=== PATIENT | female | born 1990 | race Caucasian/White ===

== ENCOUNTER 2016-11-26 09:51 | Day surgery (SDC) | payer MEDICAID ==
[~2016-11-26 09:51] MED LIST: Lactated Ringers 1,000 ML IV SCH; Lidocaine 2% 5 ML SDV ONE; Midazolam 1 MG/ML 2 ML SDV ONE; Ondansetron 4 MG/2 ML SDV ONE; Propofol 200 MG/20 ML SDV ONE; Sodium Chloride 0.9% 10 ML Syringe FLUSH PRN; Sodium Chloride 0.9% 2.5 ML Syringe FLUSH PRN; fentaNYL 100 MCG/2 ML SDV ONE
--- NOTE | 2016-11-26 10:24 | PCM.PREANE ---
Preanesthetic Assessment - Anesthesia/Transfusion/Family Hx Anesthesia History: Prior Anesthesia Without Reaction Family History of Anesthesia Reaction: No Transfusion History: No Prior Transfusion(s) Intubation History: Unknown - Review of Systems General: No Symptoms Cardiovascular: No Symptoms Gastrointestinal: No Symptoms Neurological: No Symptoms Other: Reports: None - Physical Assessment O2 Sat by Pulse Oximetry: 96 Respiratory Rate: 16 Vital Signs: Last Vital Signs Temp 36.1 C 11/26/16 10:15 Pulse 77 11/26/16 10:15 Resp 16 11/26/16 10:15 BP 135/61 11/26/16 10:15 Pulse Ox 96 11/26/16 10:15 Height: 1.47 m Weight: 66.678 kg ASA Class: 2 Mental Status: Alert & Oriented x3 Airway Class: Mallampati = 2 Dentition: Reports: Normal Dentition Thyro-Mental Finger Breadths: 3 Mouth Opening Finger Breadths: 3 ROM/Head Extension: Full Lungs: Clear to Auscultation, Normal Respiratory Effort Cardiovascular: Regular Rate, Regular Rhythm - Lab Values: Laboratory Last Values WBC 5.93 K/uL (4.0-11.0) 11/26/16 10:09 RBC 4.70 M/uL (4.30-5.90) 11/26/16 10:09 Hgb 11.9 g/dL (12.0-16.0) L 11/26/16 10:09 Hct 37.3 % (36.0-46.0) 11/26/16 10:09 MCV 79.4 fL (80.0-98.0) L 11/26/16 10:09 MCH 25.3 pg (27.0-32.0) L 11/26/16 10:09 MCHC 31.9 g/dL (31.0-37.0) 11/26/16 10:09 RDW Std Deviation 38.9 fl (28.0-62.0) 11/26/16 10:09 RDW Coeff of Manny 14 % (11.0-15.0) 11/26/16 10:09 Plt Count 278 K/uL (150-400) 11/26/16 10:09 MPV 9.70 fL (7.40-12.00) 11/26/16 10:09 Nucleated RBC % 0.0 /100WBC 11/26/16 10:09 Nucleated RBCs # 0 K/uL 11/26/16 10:09 - Allergies Allergies/Adverse Reactions: Allergies Allergy/AdvReac Type Severity Reaction Status Date / Time iodine Allergy Rash Verified 11/20/16 10:13 povidone-iodine Allergy Rash Verified 11/20/16 10:13 [From Betadine] soap [From Betadine] Allergy Rash Verified 11/20/16 10:13 - Blood Blood Available: No - Anesthesia Plan Pre-Op Medication Ordered: None - Acknowledgements Anesthesia Type Planned: General Anesthesia Pt an Appropriate Candidate for the Planned Anesthesia: Yes Alternatives and Risks of Anesthesia Discussed w Pt/Guardian: Yes Pt/Guardian Understands and Agrees with Anesthesia Plan: Yes PreAnesthesia Questionnaire HEENT History: Reports: None Other HEENT History: wears glasses Cardiovascular History: Reports: Other (See Below) Other Cardiovascular History: ? PAT, takes metoprolol, gets SOB during tachycardia episodes Respiratory History: Reports: None Gastrointestinal History: Reports: Celiac Disease, GERD Genitourinary History: Reports: None MEDIA AID History: Reports: Musculoskeletal History: Reports: Fracture, Other (See Below) (h/o costochondritis) Other Musculoskeletal History: hx of fx skull, age 5 Neurological History: Reports: Head Trauma, Migraines Endocrine/Metabolic History: Reports: Obesity/BMI 30+ Hematologic History: Reports: None Other Immunologic History: celiac disease Oncologic (Cancer) History: Reports: None - Infectious Disease History Infectious Disease History: Reports: Chicken Pox - Past Surgical History Head Surgeries/Procedures: Reports: Craniotomy (for lakhwinder fracture at age 5) HEENT Surgical History: Reports: None Cardiovascular Surgical History: Reports: None GI Surgical History: Reports: Cholecystectomy, EGD (x2) Female Surgical History: Reports: Section Neurological Surgical History: Reports: None Musculoskeletal Surgical History: Reports: None - SUBSTANCE USE Smoking Status *Q: Former Smoker Tobacco Use Within Last Twelve Months: No Second Hand Smoke Exposure: No Days Per Week of Alcohol Use: 0 Recreational Drug Use History: No - HOME MEDS Home Medications: Home Meds Multivitamin [Multivitamins] 1 each PO DAILY 09/07/13 [History] Metoprolol Succinate 50 mg PO DAILY 11/20/16 [History] - CURRENT (IN HOUSE) MEDS Current Meds: Current Medications Lactated Ringer's (Ringers, Lactated) 1,000 mls @ 100 mls/hr IV ASDIRECTED PIPER Last Admin: 11/26/16 10:14 Dose: 100 mls/hr Sodium Chloride (Saline Flush) 10 ml FLUSH ASDIRECTED PRN PRN Reason: Keep Vein Open Sodium Chloride (Saline Flush) 2.5 ml FLUSH ASDIRECTED PRN PRN Reason: Keep Vein Open Discontinued Medications Fentanyl (Sublimaze) Confirm Administered Dose 200 mcg .ROUTE .STK-MED ONE Stop: 11/26/16 08:01 Lidocaine (Xylocaine-Mpf 2%) Confirm Administered Dose 5 ml .ROUTE .STK-MED ONE Stop: 11/26/16 08:01 Midazolam HCl (Versed 1 Mg/Ml) Confirm Administered Dose 2 mg .ROUTE .STK-MED ONE Stop: 11/26/16 08:01 Ondansetron HCl (Zofran) Confirm Administered Dose 4 mg .ROUTE .STK-MED ONE Stop: 11/26/16 08:01 Propofol (Diprivan 20 Ml) Confirm Administered Dose 200 mg .ROUTE .STK-MED ONE Stop: 11/26/16 08:01
[2016-11-26] MEDS ORDERED: ePHEDrine 50 MG/ML SDV ONE (11:16)
--- NOTE | 2016-11-26 11:31 | PCM.OPNOTE ---
- General Post-Op/Procedure Note Date of Surgery/Procedure: 11/26/16 Operative Procedure(s): Operative hysteroscopy/polypectomies/curretage of endometrium Findings: Polypoid endoemtrial tissue across entire cavity Pre Op Diagnosis: Menometrorrhagia Post-Op Diagnosis: Same Anesthesia Technique: General LMA Primary Surgeon: Alana Wisdom Pathology: endometrial curretings Fluid Replacement, Intraop: 1,000 (Fluid deficit 730 mL NS) EBL in mLs: 25 Complications: None known Condition: Good Free Text/Narrative:: Dictation [id number]
[2016-11-26] MEDS: fentaNYL 100 MCG/2 ML SDV IVPUSH PRN ×2 (11:55→12:00)
--- NOTE | 2016-11-26 12:08 | PCM.POSTAN ---
POST ANESTHESIA ASSESSMENT - MENTAL STATUS Mental Status: Alert, Oriented - RESPIRATORY Respiratory Status: Respiratory Rate WNL, Airway Patent, O2 Saturation Stable - CARDIOVASCULAR CV Status: Pulse Rate WNL, Blood Pressure Stable - GASTROINTESTINAL GI Status: No Symptoms - PAIN Pain Score: 5 - POST OP HYDRATION Hydration Status: Adequate & Stable - OBSERVATIONS Free Text/Narrative:: no anesthesia problems
--- NOTE | 2016-11-26 12:48 | OR ---
SURGEON: Alana Wisdom M.D. DATE OF PROCEDURE: 11/26/2016 PREOPERATIVE DIAGNOSIS: Menometrorrhagia. POSTOPERATIVE DIAGNOSIS: Menometrorrhagia. PROCEDURE: Operative hysteroscopy with polypectomy, curettage of endometrium. ANESTHESIA: General LMA. ESTIMATED BLOOD LOSS: 25 mL. FLUIDS: 1000 mL of crystalloid. Fluid deficit 730 mL of normal saline. COMPLICATIONS: None. DISPOSITION: The patient to PACU, stable. PROCEDURE IN DETAIL: Tierra is a 26-year-old female, who has had ongoing difficulties with menometrorrhagia that was back refractory to usual hormone therapy treatment and finally resolved with IM Delestrogen Depo-Provera injection. Sonohysterogram revealed 3 possible polypoid lesions. Therefore, she presents today for further evaluation with hysteroscopy and polypectomy. Risks of the procedure have been discussed with proper consent obtained. The patient was taken to the operating room, where she underwent general LMA, was placed in modified dorsal lithotomy position. She was prepped and draped in the usual sterile fashion. The bladder was drained. Time-out was performed. Speculum was then introduced in the vagina. Posterior lip of the cervix was grasped with an Allis clamp. The cervix was gently dilated to 5 mm. MyoSure hysteroscope was gently introduced. Endometrial cavity was able to be identified. Both ostia identified. The endometrial cavity was filled with polypoid lesions, but with that most consistent with either hyperplasia or diffuse dysfunctional endometrium. Therefore, using the MyoSure the endometrium was shaved and flushed to the level of the base of the endometrium to clear out the majority of the polypoid lesions. Photographs were taken. The MyoSure device was now removed. Gentle curettage of endometrium was performed. All the specimens will be sent to Pathology for analysis. Cervix was inspected and found to be hemostatic. The sponge and instrument count were correct x2. Hemostasis appeared evident. The patient tolerated the procedure well. She will go to PACU in stable condition. Specimens to pathology. FELICIA / ALONA /[id number]
[2016-11-26 14:56] VITALS: BP 121/63
== END 2016-11-26 13:10 | disposition home or self-care (01) ==
LOC: MW.SDS 09:51
PROVIDERS: ATTEND Obstetrics & Gynecology
DX: N84.0 Polyp of corpus uteri (principal); I47.1 Supraventricular tachycardia; Z87.891 Personal history of nicotine dependence; Z90.49 Acquired absence of other specified parts of digestive tract; Z98.890 Other specified postprocedural states; Z79.899 Other long term (current) drug therapy; Z91.048 Other nonmedicinal substance allergy status
CPT/HCPCS: 36415; 58558; 84703; 85027; J2250; J2405; J3010; J7120; 00952; 88305; J2704

== ENCOUNTER 2017-10-13 13:19 | Emergency (ER) | payer MEDICAID ==
--- NOTE | 2017-10-13 13:40 | EDM.PDOC ---
ED HPI GENERAL MEDICAL PROBLEM - General Chief Complaint: ENT Problem Stated Complaint: SORE THROAT Time Seen by Provider: 10/13/17 13:21 Source of Information: Reports: Patient History Limitations: Reports: No Limitations - History of Present Illness INITIAL COMMENTS - FREE TEXT/NARRATIVE: HISTORY AND PHYSICAL: History of present illness: Patient is a 27-year-old female who presents to the emergency room today with complaints of sore throat and left ear pain. She states approximately one week ago she did start to have throat discomfort and recently was placed on a Z-Jeffrey. She does have one dose left but feels that her throat is becoming more painful and is now having discomfort when eating or swallowing. She denies any fever, chills, chest pain, shortness of breath. Denies any abdominal pain, nausea, vomiting, diarrhea or constipation. Although she has pain with eating she has been able to drink appropriately. No change in bowel or urinary pattern. Review of systems: As per history of present illness and below otherwise all systems reviewed and negative. Past medical history: As per history of present illness and as reviewed below otherwise noncontributory. Surgical history: As per history of present illness and as reviewed below otherwise noncontributory. Social history: No reported history of drug or alcohol abuse. Family history: As per history of present illness and as reviewed below otherwise noncontributory. Physical exam: General: Well-developed and well-nourished 27-year-old female. Alert and oriented. Nontoxic appearing and in no acute distress. HEENT: Atraumatic, normocephalic, pupils equal and reactive bilaterally, negative for conjunctival pallor or scleral icterus, mucous membranes moist, mild erythema noted to the posterior oropharynx with mild exudate bilaterally, no pilar shifting, neck supple, nontender, trachea midline. TMs normal bilaterally. No drooling or trismus noted. No meningeal signs Lungs: Clear to auscultation, breath sounds equal bilaterally, chest nontender. Heart: S1S2, regular rate and rhythm without overt murmur Abdomen: Soft, nondistended, nontender. Negative for masses or hepatosplenomegaly. Negative for costovertebral tenderness. Pelvis: Stable nontender. Genitourinary: Deferred. Rectal: Deferred. Skin: Intact, warm, dry. No lesions or rashes noted. Extremities: Atraumatic, negative for cords or calf pain. Neurovascular unremarkable. Neuro: Awake, alert, oriented. Cranial nerves II through XII unremarkable. Cerebellum unremarkable. Motor and sensory unremarkable throughout. Exam nonfocal. Notes: Will treat the patient with Augmentin and Tylenol with Codeine. Supportive care measures were reviewed and discussed. She voices understanding and is agreeable to plan of care. Diagnostics: [] Therapeutics: [] Impression: Pharyngitis Plan: 1. Please take the medications as prescribed. Please get a new toothbrush once her antibiotic is completed 2. Follow-up with your primary care provider in the next 1-2 days. Return to the ED as needed and as discussed. Definitive disposition and diagnosis as appropriate pending reevaluation and review of above. - Related Data Allergies Allergy/AdvReac Type Severity Reaction Status Date / Time iodine Allergy Rash Verified 10/13/17 13:35 povidone-iodine Allergy Rash Verified 10/13/17 13:35 [From Betadine] soap [From Betadine] Allergy Rash Verified 10/13/17 13:35 Home Meds: Home Meds Amoxicillin/Potassium Clav [Augmentin 875-125 Tablet] 1 each PO BID 10 Days #20 tablet 10/13/17 [Rx] Azithromycin [Zithromax] 1 gm PO ASDIRECTED 10/13/17 [History] Past Medical History HEENT History: Reports: None Other HEENT History: wears glasses Cardiovascular History: Reports: Other (See Below) Other Cardiovascular History: ? PAT, takes metoprolol, gets SOB during tachycardia episodes Respiratory History: Reports: None Gastrointestinal History: Reports: Celiac Disease, GERD Genitourinary History: Reports: None LUMP ROLLER History: Reports: Musculoskeletal History: Reports: Fracture, Other (See Below) (h/o costochondritis) Other Musculoskeletal History: hx of fx skull, age 5 Neurological History: Reports: Head Trauma, Migraines Endocrine/Metabolic History: Reports: Obesity/BMI 30+ Hematologic History: Reports: None Other Immunologic History: celiac disease Oncologic (Cancer) History: Reports: None - Infectious Disease History Infectious Disease History: Reports: Chicken Pox - Past Surgical History Head Surgeries/Procedures: Reports: Craniotomy (for lakhwinder fracture at age 5) HEENT Surgical History: Reports: None Cardiovascular Surgical History: Reports: None GI Surgical History: Reports: Cholecystectomy, EGD (x2) Female Surgical History: Reports: Section Neurological Surgical History: Reports: None Musculoskeletal Surgical History: Reports: None Social & Family History - Family History Family Medical History: Noncontributory - Caffeine Use Caffeine Use: Reports: Coffee ED ROS ENT - Review of Systems Review Of Systems: ROS reveals no pertinent complaints other than HPI. ED EXAM, ENT - Physical Exam Exam: See Below (See dictation) Course - Vital Signs Last Recorded V/S: Last Vital Signs Temp 98.4 F 10/13/17 13:36 Pulse 67 10/13/17 13:36 Resp 20 10/13/17 13:36 BP 125/78 10/13/17 13:36 Pulse Ox 98 10/13/17 13:36 Departure - Departure Time of Disposition: 13:39 Disposition: Home, Self-Care 01 Clinical Impression: Pharyngitis Qualifiers: Pharyngitis/tonsillitis etiology: unspecified etiology Qualified Code(s): J02.9 - Acute pharyngitis, unspecified - Discharge Information Prescriptions: Amoxicillin/Potassium Clav [Augmentin 875-125 Tablet] 1 each PO BID 10 Days #20 tablet Instructions: Pharyngitis, [id number] Forms: ED Department Discharge Additional Instructions: The following information is given to patients seen in the emergency department who are being discharged to home. This information is to outline your options for follow-up care. We provide all patients seen in our emergency department with a follow-up referral. The need for follow-up, as well as the timing and circumstances, are variable depending upon the specifics of your emergency department visit. If you don't have a primary care physician on staff, we will provide you with a referral. We always advise you to contact your personal physician following an emergency department visit to inform them of the circumstance of the visit and for follow-up with them and/or the need for any referrals to a consulting specialist. The emergency department will also refer you to a specialist when appropriate. This referral assures that you have the opportunity for follow-up care with a specialist. All of these measure are taken in an effort to provide you with optimal care, which includes your follow-up. Under all circumstances we always encourage you to contact your private physician who remains a resource for coordinating your care. When calling for follow-up care, please make the office aware that this follow-up is from your recent emergency room visit. If for any reason you are refused follow-up, please contact the [facility] Emergency Department at and asked to speak to the emergency department charge nurse. [facility] [address] [place] [id number] 1. Please take the medications as prescribed. Please get a new toothbrush once her antibiotic is completed 2. Warm salt water gargles 3-4 times daily. 3. Follow-up with your primary care provider in the next 1-2 days. Return to the ED as needed and as discussed.
[2017-10-13 15:28] VITALS: BP 116/73
== END 2017-10-13 14:50 | disposition home or self-care (01) ==
LOC: MW.ED 13:19
DX: J02.9 Acute pharyngitis, unspecified (principal); K21.9 Gastro-esophageal reflux disease without esophagitis; Z88.8 Allergy status to other drugs, medicaments and biological substances; Z91.048 Other nonmedicinal substance allergy status
CPT/HCPCS: 87081; 87880-QW; 99283

== ENCOUNTER 2018-07-12 13:26 | Emergency (ER) | payer MEDICAID ==
[2018-07-12] MEDS ORDERED: Sodium Chloride 0.9% 2.5 ML Syringe FLUSH PRN (13:46)
[2018-07-12] MEDS ORDERED: Sodium Chloride 0.9% 10 ML Syringe FLUSH PRN (13:46)
[2018-07-12] MEDS ORDERED: Alum Hydrox/Mag Hydrox/Simeth 15 ML, Lidocaine 2% 5 ML PO ONE ×2 (13:50)
[2018-07-12 14:24] LABS: CHLORIDE,CL 103 mmol/L (98-107); SODIUM,NA 140 mmol/L (136-145)
--- NOTE | 2018-07-12 14:29 | CR ---
Indication: Chest pain. Technique: A single AP portable view of the chest was obtained. Comparison: None Findings: Heart is normal in size. The lungs are clear. No infiltrate, pleural effusion, or pneumothorax is identified. Impression: No acute cardiopulmonary process. Dictated by Sayda Jones MD @ Jul 12 2018 2:27PM Signed by Dr. Sayda Jones @ Jul 12 2018 2:27PM
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
[2018-07-12] MEDS: Morphine 2 MG/ML Syringe IVPUSH ONE ×2 (15:22→16:19)
[2018-07-12] MEDS ORDERED: Morphine 4 MG/ML Syringe IVPUSH ONE ×2 (15:22→15:25)
[2018-07-12] MEDS ORDERED: Morphine 4 MG/ML Syringe ONE (15:24)
[2018-07-12] MEDS ORDERED: Hyoscyamine 0.125 MG Tab.SL SL ONE (16:09)
[2018-07-12] MEDS ORDERED: Sodium Chloride 0.9% 1,000 ML IV ONE (16:10)
[2018-07-12] MEDS ORDERED: LORazepam 2 MG/ML SDV IVPUSH ONE (16:23)
[2018-07-12] MEDS ORDERED: LORazepam 2 MG/ML SDV ONE (16:24)
[2018-07-12 19:04] VITALS: BP 145/93
== END 2018-07-12 17:08 | disposition home or self-care (01) ==
LOC: MW.ED 13:26
DX: R10.13 Epigastric pain (principal); Z88.8 Allergy status to other drugs, medicaments and biological substances
CPT/HCPCS: 71045; 80053; 81003; 81025; 82553; 83690; 84484; 85025; 86677; 93005; 96361; 96374; 96375; 99285; A9270; J2060; J2270; J7040

== ENCOUNTER 2020-10-05 10:15 | Emergency (ER) | payer OTHER, MEDICAID ==
[2020-10-05] MEDS ORDERED: Sodium Chloride 0.9% 1,000 ML IV ONE ×2 (10:35→10:37)
[2020-10-05] MEDS ORDERED: Sodium Chloride 0.9% 2.5 ML Syringe FLUSH PRN (10:35)
[2020-10-05] MEDS ORDERED: Sodium Chloride 0.9% 10 ML Syringe FLUSH PRN (10:35)
--- NOTE | 2020-10-05 11:50 | EDM.PDOC ---
ED HPI GENERAL MEDICAL PROBLEM - General Chief Complaint: Cardiovascular Problem Stated Complaint: HEART PALPITATIONS SOB Time Seen by Provider: 10/05/20 10:23 - History of Present Illness INITIAL COMMENTS - FREE TEXT/NARRATIVE: HISTORY AND PHYSICAL: History of present illness: This is a 30-year-old female who is 3 para 2 who presents to the ER today secondary to tachycardia with a heart rate of 160 documented on her apple watch. Patient reports that she does have a history significant for severe tachycardia during her prior pregnancies. 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 She reports that during one of her Holter monitor evaluations she was told that her heart rate was greater than 150 but she does not recall the terms atrial fibrillation or atrial flutter referring to her rhythm. Patient reports that during her prior she was started on metoprolol and after the end of her she was taken off her metoprolol. Patient reports that she has been doing well up until recently when she started feeling the episodes of tachycardia once again. She has spoken to her senior brand manager, Dr. Wisdom who has referred her for a Holter monitor and an appointment with Dr. Kimbrough. Patient has an appointment on October [address] Kimbrough at has not yet had the Holter monitor. Patient denies any recent fevers, shakes, chills. Patient reports that she has had multiple episodes of nausea and vomiting yesterday she had 4 episodes of emesis. She reports that she is currently on Zofran to assist her with her vomiting but yesterday she was having a hard time keeping down p.o. solids and liquids. She reports today she did not have any episode of emesis. Patient denies any dysuria, frequency, urgency. Patient denies any chest pain or shortness of breath. Patient reports that she feels that she has tunnel vision when her tachycardia episodes start. She reports that when she sits down and rests her tachycardia appears to improve however it appears to be precipitated with standing and walking. Review of systems: As per history of present illness and below otherwise all systems reviewed and negative. Past medical history: As per history of present illness and as reviewed below otherwise noncontributory. Surgical history: As per history of present illness and as reviewed below otherwise noncontributory. Social history: No reported history of drug abuse. Family history: As per history of present illness and as reviewed below otherwise noncontributory. Physical exam: This patient was seen and evaluated during the 2019 SARS-CoV-2 novel coronavirus pandemic period. Community viral transmission is ongoing at time of this encounter and the emergency department is operating under pandemic response procedures. Constitutional: Patient is oriented to person, place, and time. Appears well- developed and well-nourished. No distress. HEENT: Moist mucous membranes Head: Normocephalic and atraumatic Eyes: Right eye exhibits no discharge. Left eye exhibits no discharge. No scleral icterus Neck: Normal range of motion. No tracheal deviation present. Cardiovascular: Normal rate and regular rhythm. Pulmonary: Effort normal, no respiratory distress. Abdominal: No distention Musculoskeletal: Normal range of motion Neurologic: Alert and oriented to person, place and time. Skin: [place], warm and dry. Psychiatric: Normal mood and affect. Behavior is normal. Judgment and thought content normal. Nursing note and vital signs have been reviewed Diagnostics: EKG: As interpreted by ER physician: Nasir: Nonspecific ST-T wave abnormalities Normal axis No evidence of ST elevation SC Normal sinus rhythm heart rate of 90 Patient's pulse ox is 99% on room air with a heart rate documented of 82bpm to 105 bpm CBC, CMP within normal limits Therapeutics: [] Assessment and plan: 30-year-old female who presents ER today with -induced tachycardia. Patient has a history of the same in the past that was treated with metoprolol. I have discussed the case with her senior brand manager, Dr. Wisdom and she is requested that we hold off initiating any therapy at this time until after the patient's Holter monitor evaluation and evaluation with cardiology. Patient has been monitored here in the ED and has remained nontachycardic while resting. Patient has been given 2 L of NSS in case dehydration from her emesis yesterday is a contributing factor. Patient's EKG was unremarkable. At this time, the patient will be discharged home. We have been able to assist the patient in trying to obtain the Zio patch Holter monitor for her here in the ED. with results being sent to Dr. Kimbrough. I have discussed this with Dr. Koehler and She is in agreement with the current plan. Definitive disposition and diagnosis as appropriate pending reevaluation and review of above. headache Pain Score (Numeric/FACES): 4 - Related Data Allergies Allergy/AdvReac Type Severity Reaction Status Date / Time gluten Allergy Diarrhea Verified 10/05/20 10:28 iodine Allergy Rash Verified 10/05/20 10:28 povidone-iodine Allergy Rash Verified 10/05/20 10:28 [From Betadine] soap [From Betadine] Allergy Rash Verified 10/05/20 10:28 Home Meds: Home Meds . [No Known Home Meds] 10/05/20 [History] Past Medical History HEENT History: Reports: None Other HEENT History: wears glasses Cardiovascular History: Reports: Other (See Below) Other Cardiovascular History: ? PAT, gets SOB during tachycardia episodes at times. Has worn a holter monitor in the past. 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: Musculoskeletal History: Reports: Fracture, Other (See Below) Other Musculoskeletal History: hx of fx skull, age 5 Neurological History: Reports: Head Trauma, Migraines Endocrine/Metabolic History: Reports: Obesity/BMI 30+ Hematologic History: Reports: None Other Immunologic History: celiac disease Oncologic (Cancer) History: Reports: None - Infectious Disease History Infectious Disease History: Reports: Chicken Pox - Past Surgical History Head Surgeries/Procedures: Reports: Craniotomy HEENT Surgical History: Reports: None Cardiovascular Surgical History: Reports: None GI Surgical History: Reports: Cholecystectomy, EGD Female Surgical History: Reports: Section Other Female Surgeries/Procedures: Has an IUD in place Neurological Surgical History: Reports: None Other Neurological Surgeries/Procedures: skull fracture when she was 5 years old Musculoskeletal Surgical History: Reports: None Social & Family History - Family History Family Medical History: No Pertinent Family History - Tobacco Use Tobacco Use Status *Q: Never Tobacco User - Caffeine Use Caffeine Use: Reports: Coffee - Recreational Drug Use Recreational Drug Use: No ED ROS GENERAL - Review of Systems Review Of Systems: See Below ED EXAM, GENERAL - Physical Exam Exam: See Below Course - Vital Signs Last Recorded V/S: Last Vital Signs Temp 97.6 F 10/05/20 10:24 Pulse 96 10/05/20 11:15 Resp BP 123/61 10/05/20 11:15 Pulse Ox 98 10/05/20 11:15 - Orders/Labs/Meds Orders: Active Orders 24 hr Category Date Time Status EKG Documentation Completion [RC] STAT Care 10/05/20 10:31 Active Sodium Chloride 0.9% [Saline Flush] Med 10/05/20 10:35 Active 10 ml FLUSH ASDIRECTED PRN Sodium Chloride 0.9% [Saline Flush] Med 10/05/20 10:35 Active 2.5 ml FLUSH ASDIRECTED PRN Saline Lock Insert [OM.PC] Stat Oth 10/05/20 10:35 Ordered Medication Orders Sodium Chloride (Sodium Chloride 0.9% 10 Ml Syringe) 10 ml FLUSH ASDIRECTED PRN PRN Reason: Keep Vein Open Sodium Chloride (Sodium Chloride 0.9% 2.5 Ml Syringe) 2.5 ml FLUSH ASDIRECTED PRN PRN Reason: Keep Vein Open Labs: Laboratory Tests 10/05/20 10/05/20 10/05/20 Range/Units 11:33 11:33 11:33 WBC 6.75 (4.0-11.0) K/uL RBC 4.00 L (4.30-5.90) M/uL Hgb 12.1 (12.0-16.0) g/dL Hct 35.3 L (36.0-46.0) % MCV 88.3 (80.0-98.0) fL MCH 30.3 (27.0-32.0) pg MCHC 34.3 (31.0-37.0) g/dL RDW Std Deviation 42.3 (28.0-62.0) fl RDW Coeff of Manny 13 (11.0-15.0) % Plt Count 206 (150-400) K/uL MPV 9.60 (7.40-12.00) fL Neut % (Auto) 71.8 (48.0-80.0) % Lymph % (Auto) 17.8 (16.0-40.0) % Archer % (Auto) 9.3 (0.0-15.0) % Eos % (Auto) 0.7 (0.0-7.0) % Baso % (Auto) 0.4 (0.0-1.5) % Neut # (Auto) 4.8 (1.4-5.7) K/uL Lymph # (Auto) 1.2 (0.6-2.4) K/uL Archer # (Auto) 0.6 (0.0-0.8) K/uL Eos # (Auto) 0.1 (0.0-0.7) K/uL Baso # (Auto) 0.0 (0.0-0.1) K/uL Nucleated RBC % 0.0 /100WBC Nucleated RBCs # 0 K/uL Sodium 138 (136-145) mmol/L Potassium 3.9 (3.5-5.1) mmol/L Chloride 104 (98-107) mmol/L Carbon Dioxide 27.5 (21.0-32.0) mmol/L BUN 10 (7.0-18.0) mg/dL Creatinine 0.7 (0.6-1.0) mg/dL Est Cr Clr Drug Dosing 82.88 mL/min Estimated GFR (MDRD) > 60.0 ml/min Glucose 83 (74-106) mg/dL Calcium 8.7 (8.5-10.1) mg/dL Magnesium 1.8 (1.8-2.4) mg/dL Total Bilirubin 0.2 (0.2-1.0) mg/dL AST 16 (15-37) IU/L ALT 27 (14-63) IU/L Alkaline Phosphatase 52 (46-116) U/L Total Protein 6.4 (6.4-8.2) g/dL Albumin 3.0 L (3.4-5.0) g/dL Globulin 3.4 (2.6-4.0) g/dL Albumin/Globulin Ratio 0.9 (0.9-1.6) Urine Color YELLOW Urine Appearance SLT CLOUDY Urine pH 7.0 (5.0-8.0) Ur Specific Rex 1.015 (1.001-1.035) Urine Protein NEGATIVE (NEGATIVE) mg/dL Urine Glucose (UA) NEGATIVE (NEGATIVE) mg/dL Urine Ketones NEGATIVE (NEGATIVE) mg/dL Urine Occult Blood NEGATIVE (NEGATIVE) Urine Nitrite NEGATIVE (NEGATIVE) Urine Bilirubin NEGATIVE (NEGATIVE) Urine Urobilinogen 0.2 (<2.0) EU/dL Ur Leukocyte Esterase NEGATIVE (NEGATIVE) Meds: Medications Generic Name Dose Route Start Last Admin Trade Name Freq PRN Reason Stop Dose Admin Sodium Chloride 10 ml 10/05/20 10:35 Sodium Chloride 0.9% 10 Ml Syringe FLUSH ASDIRECTED PRN Keep Vein Open Sodium Chloride 2.5 ml 10/05/20 10:35 Sodium Chloride 0.9% 2.5 Ml Syringe FLUSH ASDIRECTED PRN Keep Vein Open Discontinued Medications Generic Name Dose Route Start Last Admin Trade Name Ledy PRN Reason Stop Dose Admin Acetaminophen 650 mg 10/05/20 12:32 Acetaminophen 325 Mg Tab PO 10/05/20 12:33 NOW ONE Sodium Chloride 1,000 mls @ 999 mls/hr 10/05/20 10:35 10/05/20 11:43 Normal Saline IV 10/05/20 11:35 999 mls/hr .Bolus ONE Administration Sodium Chloride 1,000 mls @ 999 mls/hr 10/05/20 10:37 10/05/20 11:44 Normal Saline IV 10/05/20 11:37 999 mls/hr .Bolus ONE Administration Departure - Departure Time of Disposition: 12:40 Disposition: Home, Self-Care 01 Condition: Good Clinical Impression: Palpitations, Supraventricular tachycardia during , Tachycardia Instructions: Palpitations, Supraventricular Tachycardia, Adult, Sinus Tachycardia Forms: ED Department Discharge Additional Instructions: You were seen and evaluated in the ER today secondary to episode of tachycardia at home documented on your apple watch. It appears that you do have a history significant for -induced tachycardia. It is unclear the exact rhythm that you had since during your evaluation here in the ER you have had a normal r hythm. We will assist you in obtaining a Zio patch Holter monitor to wear so that we can have some results for Dr. Kimbrough during your appointment next week. I have discussed your case with Dr. Wisdom who agrees with the current plan. You have been given 2 L of saline here in the ER to assist with hydration in case dehydration was a contributing factor in your tachycardia. Please go home and get plenty rest and drink plenty of fluids over the next couple days. The following information is given to patients seen in the emergency department who are being discharged to home. This information is to outline your options for follow-up care. We provide all patients seen in our emergency department with a follow-up referral. The need for follow-up, as well as the timing and circumstances, are variable depending upon the specifics of your emergency department visit. If you don't have a primary care physician on staff, we will provide you with a referral. We always advise you to contact your personal physician following an emergency department visit to inform them of the circumstance of the visit and for follow-up with them and/or the need for any referrals to a consulting specialist. The emergency department will also refer you to a specialist when appropriate. This referral assures that you have the opportunity for follow-up care with a specialist. All of these measure are taken in an effort to provide you with optimal care, which includes your follow-up. Under all circumstances we always encourage you to contact your private physician who remains a resource for coordinating your care. When calling for follow-up care, please make the office aware that this follow-up is from your recent emergency room visit. If for any reason you are refused follow-up, please contact the [facility] Emergency Department at and asked to speak to the emergency department charge nurse. [facility] [address] [place] [address] [place] [address] Sepsis Event Note (ED) - Evaluation Sepsis Screening Result: No Definite Risk - Focused Exam Vital Signs: Vital Signs Temp Pulse BP Pulse Ox 10/05/20 11:15 96 123/61 98 10/05/20 11:00 92 114/63 97 10/05/20 10:24 97.6 F 99 127/73 100 - My Orders Last 24 Hours: My Active Orders 10/05/20 10:31 EKG Documentation Completion [RC] STAT 10/05/20 10:35 Sodium Chloride 0.9% [Saline Flush] 10 ml FLUSH ASDIRECTED PRN Sodium Chloride 0.9% [Saline Flush] 2.5 ml FLUSH ASDIRECTED PRN Saline Lock Insert [OM.PC] Stat - Assessment/Plan Last 24 Hours: My Active Orders 10/05/20 10:31 EKG Documentation Completion [RC] STAT 10/05/20 10:35 Sodium Chloride 0.9% [Saline Flush] 10 ml FLUSH ASDIRECTED PRN Sodium Chloride 0.9% [Saline Flush] 2.5 ml FLUSH ASDIRECTED PRN Saline Lock Insert [OM.PC] Stat
[2020-10-05 12:06] LABS: BLOOD UREA NITROGEN,BUN 10 mg/dL (7.0-18.0); CARBON DIOXIDE,CO2 27.5 mmol/L (21.0-32.0); GLUCOSE RANDOM 83 mg/dL (74-106)
[2020-10-05 12:09] LABS: CHLORIDE,CL 104 mmol/L (98-107); POTASSIUM,K 3.9 mmol/L (3.5-5.1); SODIUM,NA 138 mmol/L (136-145)
[2020-10-05] MEDS ORDERED: Acetaminophen 325 MG Tab PO ONE (12:32)
[2020-10-05 13:32] VITALS: BP 114/69; PULSE 86
== END 2020-10-05 13:32 | disposition home or self-care (01) ==
LOC: MW.ED 10:15
DX: O99.412 Diseases of the circulatory system complicating pregnancy, second trimester (principal); O99.212 Obesity complicating pregnancy, second trimester; I47.1 Supraventricular tachycardia; R00.2 Palpitations; E66.9 Obesity, unspecified; Z91.09 Other allergy status, other than to drugs and biological substances; Z91.018 Allergy to other foods; Z91.041 Radiographic dye allergy status; Z3A.18 18 weeks gestation of pregnancy
CPT/HCPCS: 80053; 81003; 83735; 85025; 93005; 99285; A9270; J7030

== ENCOUNTER 2021-03-07 03:44 | Inpatient (IN) | payer OTHER, MEDICAID ==
[2021-03-07] MEDS ORDERED: ceFAZolin 1 GM in Premix Bag 1 BAG IV ONE (05:50)
[2021-03-07] MEDS ORDERED: Citric Acid/Sodium Citrate Solution 30 ML Cup PO ONE (05:50)
[2021-03-07] MEDS ORDERED: Sodium Chloride 0.9% 10 ML Syringe FLUSH PRN (05:50)
[2021-03-07] MEDS ORDERED: Sodium Chloride 0.9% 20 ML SDV IV PRN (05:50)
[2021-03-07] MEDS ORDERED: Sodium Chloride 0.9% 2.5 ML Syringe FLUSH PRN (05:50)
[2021-03-07] MEDS ORDERED: Oxytocin/0.9 % Sodium Chloride 30 UNIT/500 ML BAG IV SCH (06:00)
[2021-03-07] MEDS: Lactated Ringers 1,000 ML IV SCH ×2 (06:10→06:18)
[2021-03-07] MEDS ORDERED: Morphine PF 10 MG/10 ML SDV ONE (07:21)
[2021-03-07] MEDS ORDERED: Dexamethasone 10 MG/ML SDV IVPUSH ONE (07:48)
[2021-03-07] MEDS ORDERED: Famotidine 20 MG/2 ML SDV IVPUSH ONE (07:48)
[2021-03-07] MEDS ORDERED: fentaNYL 100 MCG/2 ML SDV ONE ×2 (07:52→08:52)
[2021-03-07] MEDS ORDERED: Famotidine 20 MG/2 ML SDV ONE (08:05)
[2021-03-07] MEDS ORDERED: Lidocaine 1% 20 ML MDV ONE (08:28)
[2021-03-07] MEDS ORDERED: Lidocaine 2% with EPINEPHrine 1:200,000 20 ML SDV ONE (08:29)
[2021-03-07] MEDS ORDERED: ePHEDrine 50 MG/ML SDV ONE (08:34)
[2021-03-07] MEDS ORDERED: Ondansetron 4 MG/2 ML SDV ONE (08:34)
[2021-03-07] MEDS ORDERED: Glycopyrrolate 0.2 MG/ML SDV ONE (08:34)
[2021-03-07] MEDS ORDERED: Octyl 2-Cyanoacrylate 1 Tube ONE (09:03)
[2021-03-07] MEDS ORDERED: diphenhydrAMINE 50 MG/ML SDV ONE (09:04)
[2021-03-07] MEDS ORDERED: Misoprostol 200 MCG Tab RECTAL PRN (09:27)
[2021-03-07] MEDS ORDERED: Oxytocin 10 Units/1 ML SDV IM PRN (09:27)
[2021-03-07] MEDS ORDERED: Bisacodyl 10 MG Supp RECTAL PRN (09:27)
[2021-03-07] MEDS ORDERED: Lanolin 100% Cream 7 GM Tube TOP PRN (09:27)
[2021-03-07] MEDS ORDERED: Methylergonovine 0.2 MG/1 ML Amp IM PRN (09:27)
[2021-03-07] MEDS ORDERED: Ondansetron 4 MG/2 ML SDV IVPUSH PRN (09:27)
[2021-03-07] MEDS ORDERED: diphenhydrAMINE 50 MG/ML SDV IVPUSH PRN (09:27)
[2021-03-07] MEDS ORDERED: Tranexamic Acid 1,000 MG in Sodium Chloride 0.9% 100 ML IV PRN (09:27)
[2021-03-07] MEDS ORDERED: Lactated Ringers 1,000 ML IV SCH (09:30)
--- NOTE | 2021-03-07 09:36 | PCM.OPNOTE ---
- General Post-Op/Procedure Note Date of Surgery/Procedure: 03/07/21 Operative Procedure(s): Repeat LTCS Findings: Viable female APGARs 8, 9 weight 8 lb 2 oz. Delivery intact placenta with 3V cord Pre Op Diagnosis: 39 week IUP. Previous c section, desires repeat Post-Op Diagnosis: Same Anesthesia Technique: Spinal Primary Surgeon: Alana Wisdom Fluid Replacement, Intraop: 2,000 EBL in mLs: 600 Complications: none known Condition: Stable Free Text/Narrative:: Dictation [id number] Intake & Output 03/06/21 03/07/21 03/07/21 22:59 06:59 14:59 Intake Total 1000 Balance 1000
--- NOTE | 2021-03-07 09:46 | PCM.PREANE ---
Preanesthetic Assessment - Procedure Proposed Procedure: under spinal anesthesia with GETA backup - Anesthesia/Transfusion/Family Hx Anesthesia History: Prior Anesthesia Without Reaction Family History of Anesthesia Reaction: No Transfusion History: No Prior Transfusion(s) Intubation History: Unknown - Review of Systems General: No Symptoms Pulmonary: No Symptoms, Other (Prior smoking history quit 10 years ago. Post Covid-19 4 weeks ago.) Cardiovascular: Other (Hypertension) Gastrointestinal: Other (GERD, IBS) Neurological: Other (Chronic headaches) Other: Reports: None - Physical Assessment NPO Status Date: 03/07/21 NPO Status Time: 00:00 Height: 1.5 m Weight: 73.936 kg ASA Class: 2 Mental Status: Alert & Oriented x3 Airway Class: Mallampati = 2 Dentition: Reports: Normal Dentition Thyro-Mental Finger Breadths: 3 Mouth Opening Finger Breadths: 3 ROM/Head Extension: Full Lungs: Clear to Auscultation, Normal Respiratory Effort Cardiovascular: Regular Rate, Regular Rhythm - Lab Values: Laboratory Last Values WBC 6.06 K/uL (4.0-11.0) 03/07/21 06:05 RBC 4.01 M/uL (4.30-5.90) L 03/07/21 06:05 Hgb 12.0 g/dL (12.0-16.0) 03/07/21 06:05 Hct 35.7 % (36.0-46.0) L 03/07/21 06:05 MCV 89.0 fL (80.0-98.0) 03/07/21 06:05 MCH 29.9 pg (27.0-32.0) 03/07/21 06:05 MCHC 33.6 g/dL (31.0-37.0) 03/07/21 06:05 RDW Std Deviation 43.3 fl (28.0-62.0) 03/07/21 06:05 RDW Coeff of Manny 13 % (11.0-15.0) 03/07/21 06:05 Plt Count 184 K/uL (150-400) 03/07/21 06:05 MPV 10.40 fL (7.40-12.00) 03/07/21 06:05 Nucleated RBC % 0.0 /100WBC 03/07/21 06:05 Nucleated RBCs # 0 K/uL 03/07/21 06:05 Blood Type A POSITIVE 03/07/21 06:05 Antibody Screen NEGATIVE 03/07/21 06:05 - Allergies Allergies/Adverse Reactions: Allergies Allergy/AdvReac Type Severity Reaction Status Date / Time gluten Allergy Diarrhea Verified 02/28/21 12:27 iodine Allergy Rash Verified 02/28/21 12:27 povidone-iodine Allergy Rash Verified 02/28/21 12:27 [From Betadine] soap [From Betadine] Allergy Rash Verified 02/28/21 12:27 - Blood Blood Available: Yes Product(s) Available: PRBC (Type and screen) - Anesthesia Plan Pre-Op Medication Ordered: Beta Ellyn Beta Ellyn: Labetalol Med Last Dose Date: 03/07/21 Med Last Dose Time: 05:00 - Acknowledgements Anesthesia Type Planned: Spinal Pt an Appropriate Candidate for the Planned Anesthesia: Yes Alternatives and Risks of Anesthesia Discussed w Pt/Guardian: Yes Pt/Guardian Understands and Agrees with Anesthesia Plan: Yes PreAnesthesia Questionnaire HEENT History: Reports: None Other HEENT History: wears glasses Cardiovascular History: Reports: Other (See Below) Other Cardiovascular History: ? PAT, gets SOB during tachycardia episodes at times. Has worn a holter monitor in the past. 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: Musculoskeletal History: Reports: Fracture, Other (See Below) Other Musculoskeletal History: hx of fx skull, age 5 Neurological History: Reports: Head Trauma, Migraines Endocrine/Metabolic History: Reports: Obesity/BMI 30+ Hematologic History: Reports: None Other Immunologic History: celiac disease Oncologic (Cancer) History: Reports: None - Infectious Disease History Infectious Disease History: Reports: Chicken Pox - Past Surgical History Head Surgeries/Procedures: Reports: Craniotomy HEENT Surgical History: Reports: None Cardiovascular Surgical History: Reports: None GI Surgical History: Reports: Cholecystectomy, EGD Female Surgical History: Reports: Section Other Female Surgeries/Procedures: Has an IUD in place Neurological Surgical History: Reports: None Other Neurological Surgeries/Procedures: skull fracture when she was 5 years old Musculoskeletal Surgical History: Reports: None - SUBSTANCE USE Tobacco Use Status *Q: Former Tobacco User Tobacco Use Within Last Twelve Months: No Second Hand Smoke Exposure: No Recreational Drug Use History: No - HOME MEDS Home Medications: Home Meds Acetaminophen [Tylenol] 1 - 2 tab PO ASDIRECTED PRN 02/28/21 [History] Ascorbate Calcium [Vitamin C] 1 dose PO BEDTIME 02/28/21 [History] Cholecalciferol (Vitamin D3) [Vitamin D3] 1 dose PO BEDTIME 02/28/21 [History] Fluticasone Propionate [Flonase Allergy Relief] 1 spray NASBOTH DAILY 02/28/21 [History] Labetalol [Normodyne] 100 mg PO BID 02/28/21 [History] Magnesium Sulfate 1 dose PO BEDTIME 02/28/21 [History] Omeprazole Magnesium [Prilosec Otc] 20 mg PO DAILY 02/28/21 [History] Pnv No.95/Ferrous Fum/Folic AC [ Vitamin Tablet] 1 tab PO DAILY 02/28/21 [History] - CURRENT (IN HOUSE) MEDS Current Meds: Current Medications Bisacodyl (Bisacodyl 10 Mg Supp) 10 mg RECTAL ONETIME PRN PRN Reason: Constipation Diphenhydramine HCl (Diphenhydramine 50 Mg/Ml Sdv) 25 mg IVPUSH Q6H PRN PRN Reason: Itching or Nausea Docusate Sodium (Docusate Sodium 100 Mg Cap) 100 mg PO BID [facility] Emollient Ointment (Lanolin 100% Cream 7 Gm Tube) 0 gm TOP ASDIRECTED PRN PRN Reason: Sore Nipples Oxytocin/Sodium Chloride (Oxytocin 30 Unit In Ns 0.9% 500 Ml Premix) 30 unit in 500 mls @ 250 mls/hr IV TITRATE [facility] Lactated Ringer's (Ringers, Lactated) 1,000 mls @ 500 mls/hr IV BOLUS [facility] Last Admin: 03/07/21 06:18 Dose: 500 mls/hr Documented by: Lactated Ringer's (Ringers, Lactated) 1,000 mls @ 125 mls/hr IV ASDIRECTED [facility] Tranexamic Acid 1,000 mg/ (Sodium Chloride) 110 mls @ 660 mls/hr IV ONETIME PRN PRN Reason: Bleeding Ibuprofen (Ibuprofen 800 Mg Tab) 800 mg PO Q8H PRN PRN Reason: Cramping Ketorolac Tromethamine (Ketorolac 30 Mg/Ml Sdv) 30 mg IVPUSH Q6H [facility] Stop: 03/08/21 09:31 Methylergonovine Maleate (Methylergonovine 0.2 Mg/1 Ml Amp) 0.2 mg IM ONETIME PRN PRN Reason: Excessive Vaginal Bleeding Misoprostol (Misoprostol 200 Mcg Tab) 1,000 mcg RECTAL ONETIME PRN PRN Reason: excessive bleeding Ondansetron HCl (Ondansetron 4 Mg/2 Ml Sdv) 4 mg IVPUSH Q4H PRN PRN Reason: Nausea/Vomiting Oxycodone/Acetaminophen (Acetaminophen/Oxycodone 325-5 Mg Tab) 1 tab PO Q4H PRN PRN Reason: Pain (severe 7-10) Oxycodone/Acetaminophen (Acetaminophen/Oxycodone 325-5 Mg Tab) 2 tab PO Q4H PRN PRN Reason: Pain (severe 7-10) Oxytocin (Oxytocin 10 Units/1 Ml Sdv) 10 unit IM ASDIRECTED PRN PRN Reason: Excessive Vaginal Bleeding Sodium Chloride (Sodium Chloride 0.9% 10 Ml Syringe) 10 ml FLUSH ASDIRECTED PRN PRN Reason: Keep Vein Open Sodium Chloride (Sodium Chloride 0.9% 2.5 Ml Syringe) 2.5 ml FLUSH ASDIRECTED PRN PRN Reason: Keep Vein Open Sodium Chloride (Sodium Chloride 0.9% 20 Ml Sdv) 10 ml IV ASDIRECTED PRN PRN Reason: IV Use Discontinued Medications Citric Acid/Sodium Citrate (Citric Acid/Sodium Citrate Solution 30 Ml Cup) 30 ml PO ONETIME ONE Stop: 03/07/21 05:51 Dexamethasone (Dexamethasone 10 Mg/Ml Sdv) 8 mg IVPUSH ONETIME ONE Stop: 03/07/21 07:49 Last Admin: 03/07/21 08:04 Dose: 8 mg Documented by: Diphenhydramine HCl (Diphenhydramine 50 Mg/Ml Sdv) Confirm Administered Dose 50 mg .ROUTE .STK-MED ONE Stop: 03/07/21 09:05 Ephedrine Sulfate (Ephedrine 50 Mg/Ml Sdv) Confirm Administered Dose 50 mg .ROUTE .STK-MED ONE Stop: 03/07/21 08:35 Famotidine (Famotidine 20 Mg/2 Ml Sdv) Confirm Administered Dose 20 mg .ROUTE .STK-MED ONE Stop: 03/07/21 08:06 Fentanyl (Fentanyl 100 Mcg/2 Ml Sdv) Confirm Administered Dose 100 mcg .ROUTE .STK-MED ONE Stop: 03/07/21 07:53 Fentanyl (Fentanyl 100 Mcg/2 Ml Sdv) Confirm Administered Dose 100 mcg .ROUTE .STK-MED ONE Stop: 03/07/21 08:53 Glycopyrrolate (Glycopyrrolate 0.2 Mg/Ml Sdv) Confirm Administered Dose 0.4 mg .ROUTE .STK-MED ONE Stop: 03/07/21 08:35 Cefazolin Sodium/Dextrose 1 gm (/ Premix) 50 mls @ 100 mls/hr IV ONETIME ONE Stop: 03/07/21 06:19 Famotidine 20 mg/ Sodium (Chloride) 10 mls @ 300 mls/hr IV ONETIME ONE Stop: 03/07/21 08:01 Acetaminophen (Ofirmev 1000 Mg/100 Ml) Confirm Administered Dose 100 mls @ as directed .ROUTE .STK-MED ONE Stop: 03/07/21 08:33 Lidocaine HCl (Lidocaine 1% 20 Ml Mdv) Confirm Administered Dose 20 ml .ROUTE .STK-MED ONE Stop: 03/07/21 08:29 Lidocaine/Epinephrine (Lidocaine 2% With Epinephrine 1:200,000 20 Ml Sdv) Confirm Administered Dose 20 ml .ROUTE .STK-MED ONE Stop: 03/07/21 08:30 Morphine Sulfate (Morphine Pf 10 Mg/10 Ml Sdv) Confirm Administered Dose 10 mg .ROUTE .STK-MED ONE Stop: 03/07/21 07:22 Octyl Cyanoacrylate (Octyl 2-Cyanoacrylate 1 Tube) Confirm Administered Dose 1 applic .ROUTE .STK-MED ONE Stop: 03/07/21 09:04 Ondansetron HCl (Ondansetron 4 Mg/2 Ml Sdv) Confirm Administered Dose 4 mg .ROUTE .STK-MED ONE Stop: 03/07/21 08:35
--- NOTE | 2021-03-07 09:47 | PCM48HPAN ---
Post Anesthesia Note - EVALUATION WITHIN 48HRS OF ANESTHETIC Vital Signs in Normal Range: Yes Patient Participated in Evaluation: Yes Respiratory Function Stable: Yes Airway Patent: Yes Cardiovascular Function Stable: Yes Hydration Status Stable: Yes Pain Control Satisfactory: Yes Nausea and Vomiting Control Satisfactory: Yes Mental Status Recovered: Yes - COMMENTS/OBSERVATIONS Free Text/Narrative:: Pt denies pain or nausea
--- NOTE | 2021-03-07 09:47 | PCM.POSTAN ---
POST ANESTHESIA ASSESSMENT - MENTAL STATUS Mental Status: Alert, Oriented - RESPIRATORY Respiratory Status: Respiratory Rate WNL, Airway Patent, O2 Saturation Stable - CARDIOVASCULAR CV Status: Pulse Rate WNL, Blood Pressure Stable - GASTROINTESTINAL GI Status: No Symptoms - PAIN Pain Score: 0 - POST OP HYDRATION Hydration Status: Adequate & Stable
[2021-03-07] MEDS: Ketorolac 30 MG/ML SDV IVPUSH SCH ×3 (10:01→22:27)
[2021-03-07] MEDS: Acetaminophen/oxyCODONE 325-5 MG Tab PO PRN ×2 (12:33→21:04)
--- NOTE | 2021-03-07 15:02 | OR ---
SURGEON: Alana Wisdom M.D. DATE OF PROCEDURE: 03/07/2021 PREOPERATIVE DIAGNOSES: 1. A 39-week intrauterine . 2. Previous section, desires repeat. POSTOPERATIVE DIAGNOSES: 1. A 39-week intrauterine . 2. Previous section, desires repeat. PROCEDURE: Repeat low-transverse section. ANESTHESIA: Spinal. ESTIMATED BLOOD LOSS: 600 mL. FLUIDS: 2000 mL of crystalloid. COMPLICATIONS: None known. FINDINGS: Viable female. scores 8 at one minute and 9 at five minutes. Weight of 8 pounds 2 ounces. Delivery, intact placenta 3-vessel cord. DISPOSITION: to nursery, mom in PACU, stable. PROCEDURE IN DETAIL: Tierra is a 30-year-old female who presents today for scheduled repeat delivery. Risks of procedure have been discussed with her. Proper consent was obtained. The patient was taken to the operating room where she underwent spinal anesthetic, was placed in dorsal supine position with leftward tilt. SCDs to the lower extremities, Cortes to gravity, was prepped and draped in the usual sterile fashion and a time-out was performed. Anesthesia was tested and found to be adequate. The patient had received Ancef prophylactically. Previous Pfannenstiel scar was now excised. Subcutaneous tissue was incised down to the level of rectus fascia which was incised in midline and lateralized on either side sharply and bluntly. The superior aspect of fascia was tented upward, dissected sharply and bluntly away from underlying muscle. In similar aspect, this was performed on the inferior aspect of the fascia. Rectus muscles were in the midline sharply and bluntly. Peritoneum was entered. Rectus muscle and peritoneum were now lateralized bluntly. Uterine position and position palpated. Self-retaining retractor was gently placed. Loop of bowel was to descend. Therefore, with a moist packing lap, this was mobilized away from operative field. The bladder flap was created sharply and bluntly. Bladder was mobilized away from lower uterine segment. Low transverse hysterotomy was now performed. Uterine cavity was entered with blunt end of scalpel. Hysterotomy was lateralized bluntly. Amniotomy was performed. Clear fluid was returned. The 's head was flexed. 's head was delivered followed by anterior shoulder and posterior shoulder and remainder of the body without difficulty. The 's oropharynx and nares were bulb suctioned. After delayed cord was clamped x2 and cut, infant was handed off to attending nursery staff. Cord arterial, cord venous, cord blood samples obtained. The placenta was now delivered. Uterine cavity was cleared of all clot and debris. Hysterotomy was repaired using 0 Vicryl in continuous running locked fashion followed by re- imbricating layer. The posterior aspect of the uterus was inspected. No defects or hematomas found be forming. Region was well irrigated and suction dried. Colonic gutters were cleared of all clot and debris, well irrigated and suction dried. Hysterotomy was once again inspected, found to be hemostatic except for area of oozing to the left lateral aspect of the incision. Figure-of- eight suture was placed. Hemostasis thereafter evident. Any serosal oozing was cauterized. Hemostasis appeared evident. Self-retaining retractor now gently removed. Hysterotomy was once again inspected and found to be hemostatic. Rectus muscle and peritoneum were now reapproximated using 0 Vicryl with inverted mattress suture technique. Anterior aspect of the muscle, posterior aspect of the fascia were closely inspected. Any areas of oozing were cauterized. The rectus fascial edges were now visualized and the rectus fascia was reapproximated using 0 Vicryl continuous running locked fashion beginning laterally on each side and meeting in the midline. The subcutaneous tissue was well irrigated and suction dried. Any areas of oozing were cauterized. The skin edges were now reapproximated using 3-0 Vicryl on a Kobi needle in subcuticular fashion followed by Dermabond. Sponge, instrument, and needle counts were correct x2. Uterus remained firm. Hemostasis evident. The patient tolerated the procedure well. She will go to PACU in stable condition, infant to nursery. FELICIA / ALONA /[id number]
[2021-03-07] MEDS: Docusate Sodium 100 MG Cap PO SCH (21:04)
[2021-03-08] MEDS: Acetaminophen/oxyCODONE 325-5 MG Tab PO PRN ×4 (04:03→22:03)
[2021-03-08] MEDS: Ketorolac 30 MG/ML SDV IVPUSH SCH ×2 (04:04→10:14)
--- NOTE | 2021-03-08 08:43 | PCM.PNPP ---
- General Info Date of Service: 03/08/21 Functional Status: Reports: Pain Controlled, Tolerating Diet, Ambulating, Urinating - Review of Systems General: Reports: Fatigue. Denies: Fever, Weakness Pulmonary: Denies: Shortness of Breath Cardiovascular: Denies: Chest Pain, Palpitations, Lightheadedness Gastrointestinal: Reports: Abdominal Pain (incisional--taking percocet). Denies: Nausea, Vomiting Genitourinary: Denies: Flank Pain Musculoskeletal: Reports: No Symptoms Skin: Reports: No Symptoms Neurological: Reports: No Symptoms Psychiatric: Reports: No Symptoms - General Info Date of Service: 03/08/21 - Patient Data Vital Signs - Most Recent: Last Vital Signs Temp 36.0 C L 03/08/21 08:00 Pulse 83 03/08/21 08:00 Resp 18 03/08/21 08:00 BP 135/78 03/08/21 08:00 Pulse Ox 98 03/08/21 08:00 Weight - Most Recent: 73.936 kg I&O - Last 24 Hours: Intake & Output 03/07/21 03/08/21 03/08/21 22:59 06:59 14:59 Intake Total 766 Output Total 950 650 Balance -184 -650 Lab Results - Last 24 Hours: Laboratory Results - last 24 hr 03/07/21 03/08/21 Range/Units 08:38 05:55 Hgb 9.0 L (12.0-16.0) g/dL Hct 27.2 L (36.0-46.0) % Cord ABG pH 7.365 (7.18-7.38) Cord ABG Base Excess -2 (-10--2) Cord VBG pH 7.377 (7.25-7.45) Cord VBG Base Excess 0 H (-10--2) Med Orders - Current: Current Medications Bisacodyl (Bisacodyl 10 Mg Supp) 10 mg RECTAL ONETIME PRN PRN Reason: Constipation Diphenhydramine HCl (Diphenhydramine 50 Mg/Ml Sdv) 25 mg IVPUSH Q6H PRN PRN Reason: Itching or Nausea Docusate Sodium (Docusate Sodium 100 Mg Cap) 100 mg PO BID [facility] Last Admin: 03/07/21 21:04 Dose: 100 mg Documented by: Emollient Ointment (Lanolin 100% Cream 7 Gm Tube) 0 gm TOP ASDIRECTED PRN PRN Reason: Sore Nipples Last Admin: 03/07/21 22:27 Dose: 1 applic Documented by: Oxytocin/Sodium Chloride (Oxytocin 30 Unit In Ns 0.9% 500 Ml Premix) 30 unit in 500 mls @ 250 mls/hr IV TITRATE [facility] Lactated Ringer's (Ringers, Lactated) 1,000 mls @ 500 mls/hr IV BOLUS [facility] Last Admin: 03/07/21 06:18 Dose: 500 mls/hr Documented by: Lactated Ringer's (Ringers, Lactated) 1,000 mls @ 125 mls/hr IV ASDIRECTED [facility] Tranexamic Acid 1,000 mg/ (Sodium Chloride) 110 mls @ 660 mls/hr IV ONETIME PRN PRN Reason: Bleeding Ibuprofen (Ibuprofen 800 Mg Tab) 800 mg PO Q8H PRN PRN Reason: Cramping Ketorolac Tromethamine (Ketorolac 30 Mg/Ml Sdv) 30 mg IVPUSH Q6H [facility] Stop: 03/08/21 09:31 Last Admin: 03/08/21 04:04 Dose: 30 mg Documented by: Methylergonovine Maleate (Methylergonovine 0.2 Mg/1 Ml Amp) 0.2 mg IM ONETIME PRN PRN Reason: Excessive Vaginal Bleeding Misoprostol (Misoprostol 200 Mcg Tab) 1,000 mcg RECTAL ONETIME PRN PRN Reason: excessive bleeding Ondansetron HCl (Ondansetron 4 Mg/2 Ml Sdv) 4 mg IVPUSH Q4H PRN PRN Reason: Nausea/Vomiting Oxycodone/Acetaminophen (Acetaminophen/Oxycodone 325-5 Mg Tab) 1 tab PO Q4H PRN PRN Reason: Pain (severe 7-10) Last Admin: 03/08/21 04:03 Dose: 1 tab Documented by: Oxycodone/Acetaminophen (Acetaminophen/Oxycodone 325-5 Mg Tab) 2 tab PO Q4H PRN PRN Reason: Pain (severe 7-10) Oxytocin (Oxytocin 10 Units/1 Ml Sdv) 10 unit IM ASDIRECTED PRN PRN Reason: Excessive Vaginal Bleeding Sodium Chloride (Sodium Chloride 0.9% 10 Ml Syringe) 10 ml FLUSH ASDIRECTED PRN PRN Reason: Keep Vein Open Sodium Chloride (Sodium Chloride 0.9% 2.5 Ml Syringe) 2.5 ml FLUSH ASDIRECTED PRN PRN Reason: Keep Vein Open Sodium Chloride (Sodium Chloride 0.9% 20 Ml Sdv) 10 ml IV ASDIRECTED PRN PRN Reason: IV Use Discontinued Medications Citric Acid/Sodium Citrate (Citric Acid/Sodium Citrate Solution 30 Ml Cup) 30 ml PO ONETIME ONE Stop: 03/07/21 05:51 Last Admin: 03/07/21 09:57 Dose: Not Given Documented by: Dexamethasone (Dexamethasone 10 Mg/Ml Sdv) 8 mg IVPUSH ONETIME ONE Stop: 03/07/21 07:49 Last Admin: 03/07/21 08:04 Dose: 8 mg Documented by: Diphenhydramine HCl (Diphenhydramine 50 Mg/Ml Sdv) Confirm Administered Dose 50 mg .ROUTE .STK-MED ONE Stop: 03/07/21 09:05 Ephedrine Sulfate (Ephedrine 50 Mg/Ml Sdv) Confirm Administered Dose 50 mg .ROUTE .STK-MED ONE Stop: 03/07/21 08:35 Famotidine (Famotidine 20 Mg/2 Ml Sdv) Confirm Administered Dose 20 mg .ROUTE .STK-MED ONE Stop: 03/07/21 08:06 Last Admin: 03/07/21 09:57 Dose: Not Given Documented by: Fentanyl (Fentanyl 100 Mcg/2 Ml Sdv) Confirm Administered Dose 100 mcg .ROUTE .STK-MED ONE Stop: 03/07/21 07:53 Fentanyl (Fentanyl 100 Mcg/2 Ml Sdv) Confirm Administered Dose 100 mcg .ROUTE .STK-MED ONE Stop: 03/07/21 08:53 Glycopyrrolate (Glycopyrrolate 0.2 Mg/Ml Sdv) Confirm Administered Dose 0.4 mg .ROUTE .STK-MED ONE Stop: 03/07/21 08:35 Cefazolin Sodium/Dextrose 1 gm (/ Premix) 50 mls @ 100 mls/hr IV ONETIME ONE Stop: 03/07/21 06:19 Last Admin: 03/07/21 09:57 Dose: Not Given Documented by: Famotidine 20 mg/ Sodium (Chloride) 10 mls @ 300 mls/hr IV ONETIME ONE Stop: 03/07/21 08:01 Last Admin: 03/07/21 09:57 Dose: Not Given Documented by: Acetaminophen (Ofirmev 1000 Mg/100 Ml) Confirm Administered Dose 100 mls @ as directed .ROUTE .STK-MED ONE Stop: 03/07/21 08:33 Lidocaine HCl (Lidocaine 1% 20 Ml Mdv) Confirm Administered Dose 20 ml .ROUTE .STK-MED ONE Stop: 03/07/21 08:29 Last Admin: 03/07/21 09:58 Dose: Not Given Documented by: Lidocaine/Epinephrine (Lidocaine 2% With Epinephrine 1:200,000 20 Ml Sdv) Confirm Administered Dose 20 ml .ROUTE .STK-MED ONE Stop: 03/07/21 08:30 Last Admin: 03/07/21 09:58 Dose: Not Given Documented by: Morphine Sulfate (Morphine Pf 10 Mg/10 Ml Sdv) Confirm Administered Dose 10 mg .ROUTE .STK-MED ONE Stop: 03/07/21 07:22 Octyl Cyanoacrylate (Octyl 2-Cyanoacrylate 1 Tube) Confirm Administered Dose 1 applic .ROUTE .STK-MED ONE Stop: 03/07/21 09:04 Last Admin: 03/07/21 09:58 Dose: Not Given Documented by: Ondansetron HCl (Ondansetron 4 Mg/2 Ml Sdv) Confirm Administered Dose 4 mg .ROUTE .STK-MED ONE Stop: 03/07/21 08:35 - Infant Interaction Support Person: Significant Other - Recovery Exam Fundal Tone: Firm Fundal Level: At Umbilicus Fundal Placement: Midline Lochia Amount: Scant Lochia Color: Rubra/Red Perineum Description: Intact, Minimal Bruising/Swelling Episiotomy/Laceration: None Bladder Status: Indwelling Catheter in Place Urinary Elimination: Indwelling Catheter - Exam General: Alert, Oriented Lungs: Normal Respiratory Effort Cardiovascular: Regular Rate, Regular Rhythm GI/Abdominal Exam: Normal Bowel Sounds, Soft Extremities: Pedal Edema (trace'). No: Lizzy's Sign Skin: Warm, Dry, Intact Wound/Incisions: Healing Well, No Drainage. No: Erythema Neurological: No New Focal Deficit Psy/Mental Status: Alert, Normal Affect, Normal Mood - Problem List & Annotations (1) delivery, delivered, current hospitalization SNOMED Code(s): 569630317 Code(s): O82 - ENCOUNTER FOR DELIVERY WITHOUT INDICATION Status: Acute Current Visit: No - Problem List Review Problem List Initiated/Reviewed/Updated: Yes - My Orders Last 24 Hours: My Active Orders 03/07/21 09:27 Patient Status [ADT] Routine Ambulate [RC] PER UNIT ROUTINE Antiembolic Devices [RC] PER UNIT ROUTINE Communication Order [RC] PER UNIT ROUTINE Communication Order [RC] Per Unit Routine May Shower [RC] ASDIRECTED Notify Provider Intake and Out [RC] ASDIRECTED Notify Provider Vital Signs [RC] ASDIRECTED RT Incentive Spirometry [RC] Q2HWA Acetaminophen/oxyCODONE [Percocet 325-5 MG] 1 tab PO Q4H PRN Acetaminophen/oxyCODONE [Percocet 325-5 MG] 2 tab PO Q4H PRN Ibuprofen [Motrin] 800 mg PO Q8H PRN Lanolin [Lansinoh HPA] See Dose Instructions TOP ASDIRECTED PRN Methylergonovine [Methergine] 0.2 mg IM ONETIME PRN Ondansetron [Zofran] 4 mg IVPUSH Q4H PRN Oxytocin [Pitocin] 10 unit IM ASDIRECTED PRN Tranexamic Acid [Cyklokapron] 1,000 mg Sodium Chloride 0.9% [Normal Saline] 100 ml IV ONETIME bisacodyL [Dulcolax] 10 mg RECTAL ONETIME PRN diphenhydrAMINE [Benadryl] 25 mg IVPUSH Q6H PRN miSOPROStoL [Cytotec] 1,000 mcg RECTAL ONETIME PRN Abdominal Binder [OM.PC] Routine Assess Lochia [WOMSER] Per Unit Routine Assess Uterine Involution [WOMSER] Per Unit Routine Breast Pump [WOMSER] Per Unit Routine Heat Therapy [OM.PC] Routine Ice Therapy [OM.PC] Routine Peripheral IV Discontinue [OM.PC] Routine Sequential Compression Device [OM.PC] Per Unit Routine 03/07/21 09:30 Ketorolac [Toradol] 30 mg IVPUSH Q6H Lactated Ringers [Ringers, Lactated] 1,000 ml IV ASDIRECTED 03/07/21 Lunch Regular Diet [DIET] 03/07/21 21:00 Docusate Sodium [Colace] 100 mg PO BID - Assessment Assessment:: POD 1 status post repeat c section - Plan Plan:: Continue postoperative cares. Ambulate today. May shower. VS and labs dung ssuring overall.
[2021-03-08] MEDS: Docusate Sodium 100 MG Cap PO SCH ×2 (10:14→22:03)
[2021-03-08] MEDS: Famotidine 20 MG Tab PO SCH (16:59)
[2021-03-08] MEDS ORDERED: Omeprazole 20 MG Cap.CR PO SCH (17:00)
[2021-03-09] MEDS: Famotidine 20 MG Tab PO SCH ×2 (00:15→09:55)
[2021-03-09] MEDS: Acetaminophen/oxyCODONE 325-5 MG Tab PO PRN (04:35)
[2021-03-09 08:05] VITALS: BP 120/79; PULSE 76
--- NOTE | 2021-03-09 08:42 | PCM.PNPP ---
- General Info Date of Service: 03/09/21 Functional Status: Reports: Pain Controlled, Tolerating Diet, Ambulating, Urinating - Review of Systems General: Denies: Fever, Weakness Pulmonary: Denies: Shortness of Breath Cardiovascular: Reports: Edema (trace, negative huyen's bilaterally). Denies: Palpitations, Lightheadedness Gastrointestinal: Reports: No Symptoms Genitourinary: Reports: No Symptoms Musculoskeletal: Reports: No Symptoms Skin: Reports: No Symptoms Neurological: Reports: No Symptoms Psychiatric: Reports: No Symptoms - General Info Date of Service: 03/09/21 - Patient Data Vital Signs - Most Recent: Last Vital Signs Temp 36.0 C L 03/09/21 08:00 Pulse 76 03/09/21 08:00 Resp 18 03/09/21 08:00 BP 120/79 03/09/21 08:00 Pulse Ox 97 03/09/21 08:00 Weight - Most Recent: 73.936 kg Lab Results - Last 24 Hours: Laboratory Results - last 24 hr 03/07/21 Range/Units 06:05 RPR Non-Reac (Non-Reac) Med Orders - Current: Current Medications Bisacodyl (Bisacodyl 10 Mg Supp) 10 mg RECTAL ONETIME PRN PRN Reason: Constipation Diphenhydramine HCl (Diphenhydramine 50 Mg/Ml Sdv) 25 mg IVPUSH Q6H PRN PRN Reason: Itching or Nausea Docusate Sodium (Docusate Sodium 100 Mg Cap) 100 mg PO BID [facility] Last Admin: 03/08/21 22:03 Dose: 100 mg Documented by: Emollient Ointment (Lanolin 100% Cream 7 Gm Tube) 0 gm TOP ASDIRECTED PRN PRN Reason: Sore Nipples Last Admin: 03/07/21 22:27 Dose: 1 applic Documented by: Famotidine (Famotidine 20 Mg Tab) 20 mg PO BID [facility] Last Admin: 03/09/21 00:15 Dose: Not Given Documented by: Oxytocin/Sodium Chloride (Oxytocin 30 Unit In Ns 0.9% 500 Ml Premix) 30 unit in 500 mls @ 250 mls/hr IV TITRATE [facility] Lactated Ringer's (Ringers, Lactated) 1,000 mls @ 500 mls/hr IV BOLUS [facility] Last Admin: 03/07/21 06:18 Dose: 500 mls/hr Documented by: Lactated Ringer's (Ringers, Lactated) 1,000 mls @ 125 mls/hr IV ASDIRECTED [facility] Tranexamic Acid 1,000 mg/ (Sodium Chloride) 110 mls @ 660 mls/hr IV ONETIME PRN PRN Reason: Bleeding Ibuprofen (Ibuprofen 800 Mg Tab) 800 mg PO Q8H PRN PRN Reason: Cramping Last Admin: 03/09/21 00:00 Dose: 800 mg Documented by: Methylergonovine Maleate (Methylergonovine 0.2 Mg/1 Ml Amp) 0.2 mg IM ONETIME PRN PRN Reason: Excessive Vaginal Bleeding Misoprostol (Misoprostol 200 Mcg Tab) 1,000 mcg RECTAL ONETIME PRN PRN Reason: excessive bleeding Ondansetron HCl (Ondansetron 4 Mg/2 Ml Sdv) 4 mg IVPUSH Q4H PRN PRN Reason: Nausea/Vomiting Oxycodone/Acetaminophen (Acetaminophen/Oxycodone 325-5 Mg Tab) 1 tab PO Q4H PRN PRN Reason: Pain (severe 7-10) Last Admin: 03/08/21 16:59 Dose: 1 tab Documented by: Oxycodone/Acetaminophen (Acetaminophen/Oxycodone 325-5 Mg Tab) 2 tab PO Q4H PRN PRN Reason: Pain (severe 7-10) Last Admin: 03/09/21 04:35 Dose: 2 tab Documented by: Oxytocin (Oxytocin 10 Units/1 Ml Sdv) 10 unit IM ASDIRECTED PRN PRN Reason: Excessive Vaginal Bleeding Sodium Chloride (Sodium Chloride 0.9% 10 Ml Syringe) 10 ml FLUSH ASDIRECTED PRN PRN Reason: Keep Vein Open Sodium Chloride (Sodium Chloride 0.9% 2.5 Ml Syringe) 2.5 ml FLUSH ASDIRECTED PRN PRN Reason: Keep Vein Open Sodium Chloride (Sodium Chloride 0.9% 20 Ml Sdv) 10 ml IV ASDIRECTED PRN PRN Reason: IV Use Discontinued Medications Citric Acid/Sodium Citrate (Citric Acid/Sodium Citrate Solution 30 Ml Cup) 30 ml PO ONETIME ONE Stop: 03/07/21 05:51 Last Admin: 03/07/21 09:57 Dose: Not Given Documented by: Dexamethasone (Dexamethasone 10 Mg/Ml Sdv) 8 mg IVPUSH ONETIME ONE Stop: 03/07/21 07:49 Last Admin: 03/07/21 08:04 Dose: 8 mg Documented by: Diphenhydramine HCl (Diphenhydramine 50 Mg/Ml Sdv) Confirm Administered Dose 50 mg .ROUTE .STK-MED ONE Stop: 03/07/21 09:05 Ephedrine Sulfate (Ephedrine 50 Mg/Ml Sdv) Confirm Administered Dose 50 mg .ROUTE .STK-MED ONE Stop: 03/07/21 08:35 Famotidine (Famotidine 20 Mg/2 Ml Sdv) Confirm Administered Dose 20 mg .ROUTE .STK-MED ONE Stop: 03/07/21 08:06 Last Admin: 03/07/21 09:57 Dose: Not Given Documented by: Fentanyl (Fentanyl 100 Mcg/2 Ml Sdv) Confirm Administered Dose 100 mcg .ROUTE .STK-MED ONE Stop: 03/07/21 07:53 Fentanyl (Fentanyl 100 Mcg/2 Ml Sdv) Confirm Administered Dose 100 mcg .ROUTE .STK-MED ONE Stop: 03/07/21 08:53 Glycopyrrolate (Glycopyrrolate 0.2 Mg/Ml Sdv) Confirm Administered Dose 0.4 mg .ROUTE .STK-MED ONE Stop: 03/07/21 08:35 Cefazolin Sodium/Dextrose 1 gm (/ Premix) 50 mls @ 100 mls/hr IV ONETIME ONE Stop: 03/07/21 06:19 Last Admin: 03/07/21 09:57 Dose: Not Given Documented by: Famotidine 20 mg/ Sodium (Chloride) 10 mls @ 300 mls/hr IV ONETIME ONE Stop: 03/07/21 08:01 Last Admin: 03/07/21 09:57 Dose: Not Given Documented by: Acetaminophen (Ofirmev 1000 Mg/100 Ml) Confirm Administered Dose 100 mls @ as directed .ROUTE .STK-MED ONE Stop: 03/07/21 08:33 Ketorolac Tromethamine (Ketorolac 30 Mg/Ml Sdv) 30 mg IVPUSH Q6H [facility] Stop: 03/08/21 09:31 Last Admin: 03/08/21 10:14 Dose: 30 mg Documented by: Lidocaine HCl (Lidocaine 1% 20 Ml Mdv) Confirm Administered Dose 20 ml .ROUTE .STK-MED ONE Stop: 03/07/21 08:29 Last Admin: 03/07/21 09:58 Dose: Not Given Documented by: Lidocaine/Epinephrine (Lidocaine 2% With Epinephrine 1:200,000 20 Ml Sdv) Confirm Administered Dose 20 ml .ROUTE .STK-MED ONE Stop: 03/07/21 08:30 Last Admin: 03/07/21 09:58 Dose: Not Given Documented by: Morphine Sulfate (Morphine Pf 10 Mg/10 Ml Sdv) Confirm Administered Dose 10 mg .ROUTE .STK-MED ONE Stop: 03/07/21 07:22 Octyl Cyanoacrylate (Octyl 2-Cyanoacrylate 1 Tube) Confirm Administered Dose 1 applic .ROUTE .STK-MED ONE Stop: 03/07/21 09:04 Last Admin: 03/07/21 09:58 Dose: Not Given Documented by: Ondansetron HCl (Ondansetron 4 Mg/2 Ml Sdv) Confirm Administered Dose 4 mg .ROUT E .STK-MED ONE Stop: 03/07/21 08:35 - Infant Interaction Support Person: Significant Other - Recovery Exam Fundal Tone: Firm Fundal Level: 2 Fingerbreadths Below Umbilicus Fundal Placement: Midline Lochia Amount: Scant Lochia Color: Rubra/Red Perineum Description: Intact, Minimal Bruising/Swelling Episiotomy/Laceration: None Bladder Status: Voiding Urinary Elimination: Voided - Exam General: Alert, Oriented Lungs: Normal Respiratory Effort Cardiovascular: Regular Rate, Regular Rhythm GI/Abdominal Exam: Normal Bowel Sounds, Soft Extremities: Pedal Edema (tracer). No: Huyen's Sign Skin: Warm, Dry, Intact Wound/Incisions: Healing Well, No Drainage. No: Erythema Neurological: No New Focal Deficit Psy/Mental Status: Alert, Normal Affect, Normal Mood - Problem List & Annotations (1) delivery, delivered, current hospitalization SNOMED Code(s): 911696424 Code(s): O82 - ENCOUNTER FOR DELIVERY WITHOUT INDICATION Status: Acute Current Visit: No - Problem List Review Problem List Initiated/Reviewed/Updated: Yes - My Orders Last 24 Hours: My Active Orders 03/08/21 17:00 Famotidine [Pepcid] 20 mg PO BID 03/09/21 08:39 Ready for Discharge [RC] PER UNIT ROUTINE - Assessment Assessment:: POD 2 status post repeat c section - Plan Plan:: VS remain stable. Patient ready to go home today. Discharge instructions reviewed. Follow up at [facility] 2 and 6 weeks. Discharge to home today.
[2021-03-09] MEDS: Docusate Sodium 100 MG Cap PO SCH (09:55)
[2021-03-09] MEDS: Ibuprofen 800 MG Tab PO PRN ×2 (09:55)
== END 2021-03-09 12:50 | disposition home or self-care (01) | DRG 788 ==
LOC: MW.OB 03:44 → MW.OBCHECK 03:44 → MW.OB 06:15 → OBSVTOIN 06:16 → MW.OB 12:18
PROVIDERS: ADMIT Obstetrics & Gynecology; ATTEND Obstetrics & Gynecology
PROC: 10D00Z1 Extraction of Products of Conception, Low, Open Approach (ICD-10-PCS; principal; 2021-03-07)
DX: O34.211 Maternal care for low transverse scar from previous cesarean delivery (principal); Z37.0 Single live birth; O99.62 Diseases of the digestive system complicating childbirth; K21.9 Gastro-esophageal reflux disease without esophagitis; O99.214 Obesity complicating childbirth; Z3A.39 39 weeks gestation of pregnancy; Z86.16 Personal history of COVID-19
CPT/HCPCS: 36415; 59025; 82803; 85014; 85018; 85027; 86592; 86850; 86900; 86901; A9270-GY; J0131; J1100; J1200; J1885; J2270; J2405; J3010; J3490; J7120

== ENCOUNTER 2021-12-16 22:00 | Emergency (ER) | payer OTHER, MEDICAID ==
[2021-12-16 22:45] LABS: CARBON DIOXIDE,CO2 26.9 mmol/L (21.0-32.0); POTASSIUM,K 3.7 mmol/L (3.5-5.1)
[2021-12-16 23:40] VITALS: BP 122/86; PULSE 68
== END 2021-12-16 23:39 | disposition home or self-care (01) ==
LOC: MW.ED 22:00
DX: N92.1 Excessive and frequent menstruation with irregular cycle (principal); Z88.8 Allergy status to other drugs, medicaments and biological substances; Z91.048 Other nonmedicinal substance allergy status
CPT/HCPCS: 36415; 80053; 84703; 85025; 85610; 85730; 96372; 99284; J1050; 99283

== ENCOUNTER 2022-01-29 11:16 | Day surgery (SDC) | payer OTHER, MEDICAID ==
[~2022-01-29 11:16] MED LIST changes: +Albuterol 0.083% 2.5 MG/3 ML Neb Soln NEB PRN; +HYDROmorphone 1 MG/ML Syringe IVPUSH PRN; -Lidocaine 2% 5 ML SDV ONE; +Metoclopramide 10 MG/2 ML SDV IVPUSH PRN; -Midazolam 1 MG/ML 2 ML SDV ONE; +Morphine 2 MG/ML SYRINGE IVPUSH PRN; +Naloxone 0.4 MG/ML SDV IVPUSH PRN; +Ondansetron 4 MG/2 ML SDV IVPUSH PRN; -Ondansetron 4 MG/2 ML SDV ONE; -Propofol 200 MG/20 ML SDV ONE; +Sodium Chloride 0.9% 20 ML SDV IV PRN; -fentaNYL 100 MCG/2 ML SDV ONE; +fentaNYL 50 MCG/ML SDV IVPUSH PRN
[2022-01-29] MEDS ORDERED: Dexamethasone 4 MG/ML 5 ML MDV ONE (11:21)
[2022-01-29] MEDS ORDERED: Lidocaine 2% 5 ML SDV ONE (11:21)
[2022-01-29] MEDS ORDERED: Ondansetron 4 MG/2 ML SDV ONE (11:21)
[2022-01-29] MEDS ORDERED: Midazolam 1 MG/ML 2 ML SDV ONE (11:22)
[2022-01-29] MEDS ORDERED: fentaNYL 100 MCG/2 ML SDV ONE ×2 (11:22→12:22)
[2022-01-29] MEDS ORDERED: Propofol 200 MG/20 ML SDV ONE (11:22)
[2022-01-29] MEDS ORDERED: Famotidine 20 MG/2 ML SDV ONE (11:41)
[2022-01-29] MEDS ORDERED: Promethazine 25 MG/ML SDV ONE (12:19)
[2022-01-29] MEDS ORDERED: Ketorolac 30 MG/ML SDV ONE (12:26)
[2022-01-29 15:15] VITALS: BP 138/75; PULSE 90
== END 2022-01-29 14:45 | disposition home or self-care (01) ==
LOC: MW.SDS 11:16
PROVIDERS: ATTEND Obstetrics & Gynecology
DX: N93.9 Abnormal uterine and vaginal bleeding, unspecified (principal); G43.909 Migraine, unspecified, not intractable, without status migrainosus; N92.0 Excessive and frequent menstruation with regular cycle; Z86.16 Personal history of COVID-19; Z90.49 Acquired absence of other specified parts of digestive tract; Z98.890 Other specified postprocedural states; Z87.891 Personal history of nicotine dependence; Z91.041 Radiographic dye allergy status; Z79.899 Other long term (current) drug therapy
CPT/HCPCS: 00952; 36415; 81025; 85027; J0131; J1100; J1885; J2250; J2405; J2550; J2704; J3010; J3490; J7120

== ENCOUNTER 2023-07-19 15:38 | Emergency (ER) | payer OTHER, MEDICAID ==
[2023-07-19 16:24] LABS: BASOPHILS ABSOLUTE AUTO 0.02 K/uL (0.00-0.20); BASOPHILS PERCENT AUTO 0.3 % (0.0-1.0); EOSINOPHILS ABSOLUTE AUTO 0.14 K/uL (0.00-0.45); HEMATOCRIT 42.4 % (37.0-47.0); HEMOGLOBIN 14.2 g/dL (12.0-16.0); IMMATURE GRAN ABSOLUTE AUTO 0.01 K/uL (0.00-0.05); IMMATURE GRAN PERCENT AUTO 0.1 % (0.0-0.4); LYMPHOCYTES ABSOLUTE AUTO 1.53 K/uL (1.00-4.80); LYMPHOCYTES PERCENT AUTO 21.8 % (24.0-44.0); MEAN CORPUSCULAR HEMOGLOBIN 29.1 pg (28.0-32.0); MEAN CORPUSCULAR HGB CONC 33.5 g/dL (32.0-36.0); MEAN CORPUSCULAR VOLUME 86.9 fL (83.0-99.0); MONOCYTES ABSOLUTE AUTO 0.43 K/uL (0.00-0.80); MONOCYTES PERCENT AUTO 6.1 % (0.0-8.0); NEUTROPHILS ABSOLUTE AUTO 4.89 K/uL (1.80-7.70); NEUTROPHILS PERCENT AUTO 69.7 % (41.0-71.0); PLATELET COUNT,PLT 265 K/uL (150-400); RED BLOOD CELL COUNT 4.88 M/uL (4.10-5.30); WHITE BLOOD CELL COUNT,WBC 7.02 K/uL (3.9-11.3)
[2023-07-19 16:49] LABS: A/G RATIO 1.2 (0.9-1.6); ALBUMIN 4.1 g/dL (3.4-5.0); BILIRUBIN TOTAL 0.4 mg/dL (0.2-1.0); CALCIUM 8.9 mg/dL (8.5-10.1); CARBON DIOXIDE,CO2 24.2 mmol/L (21.0-32.0); CREATININE 0.8 mg/dL (0.6-1.0); EST CRCL DRUG DOSING (CG) 70.5 mL/min; POTASSIUM,K 4.3 mmol/L (3.5-5.1); PROTEIN TOTAL,TP 7.5 g/dL (6.4-8.2)
[2023-07-19 17:48] LABS: APPEARANCE,URINE CLEAR; BILIRUBIN,URINE NEGATIVE (NEGATIVE); COLOR,URINE YELLOW; GLUCOSE,URINE NEGATIVE (NEGATIVE); KETONES,URINE NEGATIVE (NEGATIVE); LEUKOCYTE ESTERASE,URINE NEGATIVE (NEGATIVE); NITRITE,URINE NEGATIVE (NEGATIVE); OCCULT BLOOD,URINE NEGATIVE (NEGATIVE); PH,URINE 5.5 (5.0-8.0); PROTEIN,URINE NEGATIVE (NEGATIVE); UROBILINOGEN,URINE 0.2 EU/dL (<2.0)
[2023-07-19] MEDS: Acetaminophen/HYDROcodone 325-5 MG Tab PO ONE (18:32)
[2023-07-19 20:36] VITALS: BP 117/63; PULSE 84
== END 2023-07-19 20:35 | disposition home or self-care (01) ==
LOC: MW.ED 15:38
DX: R10.2 Pelvic and perineal pain (principal); K21.9 Gastro-esophageal reflux disease without esophagitis; Z75.8 Other problems related to medical facilities and other health care; Z91.048 Other nonmedicinal substance allergy status; Z91.041 Radiographic dye allergy status; Z79.899 Other long term (current) drug therapy; Z90.49 Acquired absence of other specified parts of digestive tract
CPT/HCPCS: 36415; 76856; 80053; 81003; 81025; 85025; 99284; A9270; 99283

== ENCOUNTER 2023-11-25 06:30 | Day surgery (SDC) | payer MEDICAID, OTHER ==
[2023-11-24 13:46] LABS: HEMOGLOBIN 12.8 g/dL (12.0-16.0); MEAN CORPUSCULAR HEMOGLOBIN 28.1 pg (28.0-32.0); MEAN CORPUSCULAR HGB CONC 32.8 g/dL (32.0-36.0); MEAN CORPUSCULAR VOLUME 85.7 fL (83.0-99.0); MEAN PLATELET VOLUME 9.3 fL (9.4-12.3); PLATELET COUNT,PLT 262 K/uL (150-400); RED BLOOD CELL COUNT 4.55 M/uL (4.10-5.30); WHITE BLOOD CELL COUNT,WBC 6.26 K/uL (3.9-11.3)
[2023-11-24 14:02] LABS: CALCIUM 8.7 mg/dL (8.5-10.1); CARBON DIOXIDE,CO2 28.2 mmol/L (21.0-32.0); CREATININE 0.7 mg/dL (0.6-1.0); EST CRCL DRUG DOSING (CG) 80.57 mL/min; POTASSIUM,K 4.2 mmol/L (3.5-5.1)
[2023-11-25] MEDS: Scopalamine 1mg/3day Transdermal Patch TOP ONE (06:48)
[2023-11-25] MEDS ORDERED: Bupivacaine 0.25% 30 ML SDV ONE ×2 (07:02→08:15)
[2023-11-25] MEDS: Lactated Ringers 1,000 ML IV SCH (07:07)
[2023-11-25] MEDS ORDERED: propofoL 50 ML ONE ×2 (07:10→08:31)
[2023-11-25] MEDS ORDERED: fentaNYL 100 MCG/2 ML SDV ONE (07:13)
[2023-11-25] MEDS ORDERED: Rocuronium Bromide 50 MG/5 ML Syringe ONE (07:13)
[2023-11-25] MEDS ORDERED: Water For Injection, Sterile 20 ML ONE (07:13)
[2023-11-25] MEDS ORDERED: dexmedeTOMIDine HCl 200 MCG/2 ML SDV ONE (07:13)
[2023-11-25] MEDS ORDERED: Midazolam 1 MG/ML 2 ML SDV ONE (07:13)
[2023-11-25] MEDS ORDERED: Albuterol 0.083% 2.5 MG/3 ML Neb Soln NEB PRN (07:14)
[2023-11-25] MEDS ORDERED: Naloxone 0.4 MG/ML SDV IVPUSH PRN (07:14)
[2023-11-25] MEDS ORDERED: droPERidol 5 MG/2 ML SDV IVPUSH PRN (07:14)
[2023-11-25] MEDS ORDERED: Metoclopramide 10 MG/2 ML SDV IVPUSH PRN (07:14)
[2023-11-25] MEDS ORDERED: Morphine 2 MG/ML SYRINGE IVPUSH PRN (07:14)
[2023-11-25] MEDS ORDERED: Ondansetron 4 MG/2 ML SDV IVPUSH PRN ×2 (07:14→10:10)
[2023-11-25] MEDS ORDERED: Methylene Blue 100 MG/10 ML SDV ONE (07:28)
[2023-11-25] MEDS ORDERED: Propofol 200 MG/20 ML SDV ONE ×2 (07:36→09:18)
[2023-11-25] MEDS ORDERED: Dexamethasone 4 MG/ML 5 ML MDV ONE (08:08)
[2023-11-25] MEDS ORDERED: Ondansetron 4 MG/2 ML SDV ONE (08:08)
[2023-11-25] MEDS ORDERED: ceFAZolin 2 GM Vial ONE (08:09)
[2023-11-25] MEDS ORDERED: Magnesium Sulfate (4.06 MEQ/ML) 5 GM/10 ML SDV ONE (08:10)
[2023-11-25] MEDS ORDERED: Lidocaine 1% 5 ML VIAL ONE (08:20)
[2023-11-25] MEDS ORDERED: Tranexamic Acid 1,000 MG/10 ML Vial ONE (08:51)
[2023-11-25] MEDS ORDERED: Ketorolac 30 MG/ML SDV ONE (09:15)
[2023-11-25] MEDS ORDERED: Sugammadex Sodium 200 MG/2 ML VIAL IV ONE (09:15)
[2023-11-25] MEDS ORDERED: Fluorescein 5 ML Vial ONE (09:21)
[2023-11-25] MEDS ORDERED: Promethazine 25 MG/ML SDV IM PRN (10:10)
[2023-11-25] MEDS: fentaNYL 50 MCG/ML SDV IVPUSH PRN (10:38)
[2023-11-25] MEDS: HYDROmorphone 1 MG/ML Syringe IVPUSH PRN (10:39)
[2023-11-25] MEDS: Acetaminophen 1,000 MG in Premix Bag 1 BAG IV PRN (12:16)
[2023-11-25] MEDS: HYDROmorphone 2 MG/ML Syringe IVPUSH PRN (14:57)
[2023-11-25] MEDS: oxyCODONE 5 MG Tab PO PRN (15:52)
[2023-11-25] MEDS: Docusate Sodium 100 MG Cap PO SCH (21:02)
[2023-11-26] MEDS: ceFAZolin 1 GM in Sodium Chloride 0.9% 50 ML IV ONE (04:52)
[2023-11-26] MEDS ORDERED: Sodium Chloride 0.9% 2.5 ML Syringe FLUSH PRN (05:00)
[2023-11-26] MEDS ORDERED: Sodium Chloride 0.9% 20 ML SDV IV PRN (05:00)
[2023-11-26] MEDS ORDERED: Sodium Chloride 0.9% 10 ML Syringe FLUSH PRN (05:00)
[2023-11-26 05:55] LABS: BASOPHILS ABSOLUTE AUTO 0.01 K/uL (0.00-0.20); BASOPHILS PERCENT AUTO 0.1 % (0.0-1.0); EOSINOPHILS ABSOLUTE AUTO 0.01 K/uL (0.00-0.45); EOSINOPHILS PERCENT AUTO 0.1 % (0.0-6.0); HEMATOCRIT 32.3 % (37.0-47.0); HEMOGLOBIN 10.9 g/dL (12.0-16.0); IMMATURE GRAN ABSOLUTE AUTO 0.02 K/uL (0.00-0.05); IMMATURE GRAN PERCENT AUTO 0.2 % (0.0-0.4); LYMPHOCYTES ABSOLUTE AUTO 1.67 K/uL (1.00-4.80); LYMPHOCYTES PERCENT AUTO 16.2 % (24.0-44.0); MEAN CORPUSCULAR HEMOGLOBIN 28.5 pg (28.0-32.0); MEAN CORPUSCULAR HGB CONC 33.7 g/dL (32.0-36.0); MEAN CORPUSCULAR VOLUME 84.6 fL (83.0-99.0); MEAN PLATELET VOLUME 9.4 fL (9.4-12.3); MONOCYTES ABSOLUTE AUTO 0.67 K/uL (0.00-0.80); MONOCYTES PERCENT AUTO 6.5 % (0.0-8.0); NEUTROPHILS ABSOLUTE AUTO 7.91 K/uL (1.80-7.70); NEUTROPHILS PERCENT AUTO 76.9 % (41.0-71.0); PLATELET COUNT,PLT 261 K/uL (150-400); RED BLOOD CELL COUNT 3.82 M/uL (4.10-5.30); WHITE BLOOD CELL COUNT,WBC 10.29 K/uL (3.9-11.3)
[2023-11-26 06:16] LABS: CALCIUM 8.4 mg/dL (8.5-10.1); CREATININE 0.8 mg/dL (0.6-1.0); EST CRCL DRUG DOSING (CG) 70.5 mL/min; POTASSIUM,K 4.1 mmol/L (3.5-5.1)
[2023-11-26 07:50] VITALS: BP 119/69; PULSE 75
== END 2023-11-26 09:26 | disposition home or self-care (01) ==
LOC: MW.SDS 06:30 → MW.OB 12:04 → MW.SDS 11-26 09:26
PROVIDERS: ATTEND Obstetrics & Gynecology
DX: N85.8 Other specified noninflammatory disorders of uterus (principal); N93.9 Abnormal uterine and vaginal bleeding, unspecified; R10.2 Pelvic and perineal pain; E66.9 Obesity, unspecified; K21.9 Gastro-esophageal reflux disease without esophagitis; Z98.890 Other specified postprocedural states; Z79.899 Other long term (current) drug therapy; Z88.5 Allergy status to narcotic agent; Z88.8 Allergy status to other drugs, medicaments and biological substances; Z91.041 Radiographic dye allergy status; Z87.891 Personal history of nicotine dependence; Z68.33 Body mass index [BMI] 33.0-33.9, adult
CPT/HCPCS: 36415; 58550; 80048; 85025; 85027; 86850; 86900; 86901; A9270; J0131; J0665; J0690; J1100; J1170; J2250; J2704; J3010; J3475; J3490; J7120; Q9968; 00944; 64999; J1885; J2405

== ENCOUNTER 2023-11-26 18:14 | Emergency (ER) | payer OTHER ==
[2023-11-26 19:00] LABS: BASOPHILS ABSOLUTE AUTO 0.03 K/uL (0.00-0.20); BASOPHILS PERCENT AUTO 0.3 % (0.0-1.0); EOSINOPHILS ABSOLUTE AUTO 0.08 K/uL (0.00-0.45); EOSINOPHILS PERCENT AUTO 0.9 % (0.0-6.0); HEMOGLOBIN 11.1 g/dL (12.0-16.0); IMMATURE GRAN ABSOLUTE AUTO 0.02 K/uL (0.00-0.05); IMMATURE GRAN PERCENT AUTO 0.2 % (0.0-0.4); LYMPHOCYTES ABSOLUTE AUTO 3.15 K/uL (1.00-4.80); LYMPHOCYTES PERCENT AUTO 35.1 % (24.0-44.0); MEAN CORPUSCULAR HEMOGLOBIN 28.8 pg (28.0-32.0); MEAN CORPUSCULAR HGB CONC 33.6 g/dL (32.0-36.0); MEAN CORPUSCULAR VOLUME 85.5 fL (83.0-99.0); MEAN PLATELET VOLUME 9.6 fL (9.4-12.3); MONOCYTES ABSOLUTE AUTO 0.54 K/uL (0.00-0.80); NEUTROPHILS ABSOLUTE AUTO 5.15 K/uL (1.80-7.70); NEUTROPHILS PERCENT AUTO 57.5 % (41.0-71.0); PLATELET COUNT,PLT 256 K/uL (150-400); RED BLOOD CELL COUNT 3.86 M/uL (4.10-5.30); WHITE BLOOD CELL COUNT,WBC 8.97 K/uL (3.9-11.3)
[2023-11-26] MEDS: Ketorolac 30 MG/ML SDV IVPUSH STA (19:00)
[2023-11-26 19:01] LABS: BILIRUBIN,URINE NEGATIVE (NEGATIVE); GLUCOSE,URINE NEGATIVE (NEGATIVE); KETONES,URINE TRACE mg/dL (NEGATIVE); LEUKOCYTE ESTERASE,URINE NEGATIVE (NEGATIVE); NITRITE,URINE NEGATIVE (NEGATIVE); OCCULT BLOOD,URINE LARGE (NEGATIVE); PROTEIN,URINE 100 mg/dL (NEGATIVE); UROBILINOGEN,URINE 0.2 EU/dL (<2.0)
[2023-11-26] MEDS: Sodium Chloride 0.9% 1,000 ML IV STA ×2 (19:01→19:47)
[2023-11-26 19:04] LABS: APPEARANCE,URINE CLOUDY; COLOR,URINE DARK YELLOW
[2023-11-26 19:10] LABS: BACTERIA,URINE FEW (NEGATIVE); MUCUS,URINE LIGHT (NONE-MOD); RBC,URINE TOO NUMEROUS TO CT (0-2/HPF); SQUAMOUS EPITHELIAL CELLS,UR FEW; WBC,URINE 0-2 (0-5/HPF)
[2023-11-26 19:24] LABS: A/G RATIO 1.3 (0.9-1.6); ALBUMIN 3.7 g/dL (3.4-5.0); BILIRUBIN TOTAL 0.2 mg/dL (0.2-1.0); CALCIUM 8.5 mg/dL (8.5-10.1); CARBON DIOXIDE,CO2 33.5 mmol/L (21.0-32.0); CREATININE 0.9 mg/dL (0.6-1.0); EST CRCL DRUG DOSING (CG) 62.67 mL/min; POTASSIUM,K 3.6 mmol/L (3.5-5.1); PROTEIN TOTAL,TP 6.6 g/dL (6.4-8.2)
[2023-11-26 20:37] VITALS: BP 124/61; PULSE 63
== END 2023-11-26 20:32 | disposition home or self-care (01) ==
LOC: MW.ED 18:14
DX: R50.82 Postprocedural fever (principal); K21.9 Gastro-esophageal reflux disease without esophagitis; E66.9 Obesity, unspecified; Z68.35 Body mass index [BMI] 35.0-35.9, adult; Z79.899 Other long term (current) drug therapy; Z91.048 Other nonmedicinal substance allergy status; Z88.5 Allergy status to narcotic agent; Z75.8 Other problems related to medical facilities and other health care
CPT/HCPCS: 36415; 80053; 81001; 84703; 85025; 96361; 96374; 99283; J1885; J7030; 99284